=== PATIENT | female | born 1980 | race African-American/Black ===

== ENCOUNTER → 2018-04-03 | Outpatient (CLI) | payer BC ==
--- NOTE | 2018-04-03 20:28 | CT ---
EXAMINATION TYPE: CT facial bones wo con DATE OF EXAM: 04/03/2018 COMPARISON: None HISTORY: 37-year-old female with pain after facial injury, hit in the nose by a softball. TECHNIQUE: Contiguous high-resolution axial scanning through the facial bones without IV contrast. Co stormy reconstructions performed. CT DLP: 699.4 mGycm Automated exposure control for dose reduction was used. FINDINGS: There is a fracture along the left frontal process of the maxilla. This fracture is slightly angulate d and minimally depressed by 1 mm. There is concomitant minimal medial angulation at the maxillary and nasal bone junction causing inwar d bowing convexity along the left lateral aspect of the nose. Trace mucosal thickening within the right frontal sinus. Paranasal sinuses otherwise pneumatized. Vis ualized mastoid air cells and middle ear cavities are clear. Orbits and globes appear intact. Visualized intracranial structures show no gross abnormality. IMPRESSION: 1. SLIGHTLY ANGULATED AND MINIMALLY DEPRESSED (BY 1 MM) FRACTURE OF THE LEFT FRONTAL PROCESS OF THE M AXILLA. 2. CONCOMITANT MINIMAL MEDIAL ANGULATION AT THE MAXILLARY AND NASAL BONE JUNCTION WITH RESULTANT IN[address] RD BOWING CONVEXITY ALONG THE LEFT LATERAL ASPECT OF THE NOSE.
[2018-04-04 10:13] LABS: Cow's Milk IgE Class CLASS 0; Egg White IgE <0.35 kU/L (<0.35); Gluten IgE Class CLASS 0; Peanut IgE <0.35 kU/L (<0.35); Potato IgE <0.35 kU/L (<0.35); Potato IgE Class CLASS 0; Soybean IgE <0.35 kU/L (<0.35)
== END | disposition home or self-care (01) ==
LOC: RADCTMAIN 16:38
PROVIDERS: ATTEND Otolaryngology
DX: S02.40DA Maxillary fracture, left side, initial encounter for closed fracture (principal)
CPT/HCPCS: 36415; 70486; 86001; 86003

== ENCOUNTER → 2018-04-12 | Outpatient (CLI) | payer BC ==
[2018-04-12 15:23] LABS: Basophils % (A) 0 %; Eosinophils # (A) 0.2 k/uL (0-0.7); Eosinophils % (A) 2 %; HCT 37.6 % (34.0-46.0); HGB 12.7 gm/dL (11.4-16.0); Lymphocytes # (A) 1.9 k/uL (1.0-4.8); Lymphocytes % (A) 28 %; MCH 30.6 pg (25.0-35.0); MCHC 33.6 g/dL (31.0-37.0); MCV 90.9 fL (80.0-100.0); Mean Platelet Volume 7.6; Monocytes # (A) 0.4 k/uL (0-1.0); Monocytes % (A) 6 %; Neutrophils # (A) 4.1 k/uL (1.3-7.7); Neutrophils % (A) 61 %; Platelet Count 361 k/uL (150-450); RBC 4.14 m/uL (3.80-5.40); RDW 13.1 % (11.5-15.5); WBC 6.8 k/uL (3.8-10.6)
[2018-04-12 15:53] LABS: T4, Free (Free Thyroxine) 0.85 ng/dL (0.78-2.19)
[2018-04-13 01:12] LABS: Vitamin D 25 Hydroxy 19.4 ng/mL (30.0-100.0)
== END | disposition home or self-care (01) ==
LOC: LABWHC1 14:50
PROVIDERS: ATTEND Nurse Practitioner Family
DX: R53.83 Other fatigue (principal); R21 Rash and other nonspecific skin eruption
CPT/HCPCS: 36415; 82306; 82607; 84439; 84443; 85025; 86038

== ENCOUNTER 2019-06-28 12:58 | Emergency (ER) | payer BC ==
[2019-06-28 13:04] VITALS: RESP 16; TEMP 98
[2019-06-28] MEDS ORDERED: tiZANidine 4 MG TAB PO STA (13:28)
[2019-06-28 14:03] LABS: HCG,Qualitative Serum Not Detected
[2019-06-28 14:06] LABS: African American GFR (CKD) >90 (>60 ml/min/1.73 sqM); Anion Gap 7 mmol/L; Blood Urea Nitrogen 7 mg/dL (7-17); Calcium 9.4 mg/dL (8.4-10.2); Carbon Dioxide 27 mmol/L (22-30); Chloride 103 mmol/L (98-107); Glucose 202 mg/dL (74-99); Potassium 4.4 mmol/L (3.5-5.1); Sodium 137 mmol/L (137-145)
[2019-06-28] MEDS ORDERED: MORPHINE SULFATE 4 MG/ML SYRINGE IVP STA ×2 (14:12→15:25)
[2019-06-28 14:15] LABS: Basophils % (A) 0 %; Eosinophils # (A) 0.1 k/uL (0-0.7); Eosinophils % (A) 2 %; HCT 36.9 % (34.0-46.0); HGB 12.4 gm/dL (11.4-16.0); Lymphocytes # (A) 1.7 k/uL (1.0-4.8); Lymphocytes % (A) 20 %; MCH 30.6 pg (25.0-35.0); MCHC 33.5 g/dL (31.0-37.0); MCV 91.4 fL (80.0-100.0); Mean Platelet Volume 7.9; Monocytes # (A) 0.4 k/uL (0-1.0); Monocytes % (A) 5 %; Neutrophils # (A) 5.9 k/uL (1.3-7.7); Neutrophils % (A) 71 %; Platelet Count 341 k/uL (150-450); RBC 4.03 m/uL (3.80-5.40); RDW 12.9 % (11.5-15.5); WBC 8.2 k/uL (3.8-10.6)
--- NOTE | 2019-06-28 15:28 | CT ---
EXAMINATION TYPE: CT lumbar spine wo con, CT sacrum wo con DATE OF EXAM: 06/28/2019 COMPARISON: None HISTORY: 38-year-old female left hip pain TECHNIQUE: Contiguous axial scanning of the lumbar spine and sacrum without IV contrast. Coronal and sagittal reconstructions performed. CT DLP: 1276.2 mGycm Automated exposure control for dose reduction was used. FINDINGS: Lumbar spine: Vertebral body heights are preserved and alignment is maintained. Degenerative disc disease L5-S1 and also at L4-L5 with disc height loss and disc osteophyte complex f ormation at L5-S1. Large disc herniation at L4-L5. There is mild neuroforaminal narrowing on both sides at L4-L5 and L5-S1. At L4-L5, broad-based posterior disc bulge with superimposed central, right paracentral herniation ca using [id number]-[id number] spinal canal stenosis in probably abutting the traversing L5 nerve roots. At L5-S1, large left paracentral disc osteophyte complex moderately narrows the spinal canal and like ly impinges the traversing left S1 nerve root and possibly additional sacral nerve roots. Sacrum: SI joints appear symmetric and intact. No sacral fracture. The coccyx is not included. 4.4 cm left ovarian cyst almost certainly represents a benign functional cyst. A 6-8 week follow-up u ltrasound can reassess. COMBINED IMPRESSION: 1. Degenerative disc disease lower lumbar spine. A large left paracentral disc ossified complex moder ately narrows the spinal canal at L5-S1 and likely impinges the traversing left S1 and possibly addit ional traversing sacral nerve roots. 2. Additional broad-based disc bulge with superimposed central, right paracentral herniation at L4-L5 causes ytkf-lf-fucjttva spinal canal stenosis and may abut the traversing L5 nerve roots. 3. A 4.4 cm left ovarian cyst almost certainly represents a benign functional cyst. 6-8 week follow-u p ultrasound can ensure involution.
[2019-06-28] MEDS ORDERED: DEXAMETHASONE SOD PHOSPHATE 10 MG/ML 1 ML VIAL IV STA (16:26)
[2019-06-28] MEDS ORDERED: HYDROmorphone 1 MG/ML 1 ML SYRINGE IVP STA (16:48)
--- NOTE | 2019-06-28 16:48 | P.HPIM ---
History of Present Illness This is a combined H and P and discharge summary This is a pleasant 38 years old female with past medical history of hypertension, gestational diabetes, migraines, herniated disc, sacroiliac joint pain. Presents because of acute lower back pain. Patient states that she tried to turn to right side to drop off her 4 years old baby went she felt severe pain tearing like in her left lower back, the pain is radiating to the left lower extremity associated with worsening numbness in her feet and left hip area. Patient states that she has significant history of back pain and she saw Dr. Magdaleno the orthopedic about 10 years ago when she was 28 years old, however for about one year ago she started having significantly more low back pain when she was part of run club in 04/2018, she followed up with her PCP Dr. Crane who treated her conservatively,patient wanted to follow up with [facility] for about one year but she couldn't find appointment eventually patient was referred to Dr. Perez the neurologist who referred her for EMG was supposed to get it tomorrow and steroid injection at her back on 07/02/2019. Also patient had MRI of the back about 2-3 months ago was showing spinal stenosis secondary to herniated disc similar to the description below. Patient states usually she has some numbness in the lateral left 2 toes and the lateral side of the foot, however today her numbness is more extensive and more severe and involved the whole foot and the left lateral leg up to the thigh. Also usually sharp pain is in the left iliosacral joint area, however her pain is more severe today as 10/10 and it has extended to the left hip area down her leg. Patient refused her left leg to be examined her to move it due to severe pain Vitals his stable, labs include a CBC, BMP are unremarkable. Patient received several injections for pain however she still complaining fromthis severe pain so CT of the lumbar spine showed degenerative disc disease of the lower lumbar spine with large left paracentral disc complex causing narrowing of the spinal canal at L5 to S1, with right paracentral herniated disc at L4 to L5 causing [id number]-mn-[id number] spinal stenosis, also there is 4.4 cm left ovarian cyst thought it is benign with recommendation for follow-up in 6-8 weeks Review of systems CONSTITUTIONAL: No fever, no malaise, no fatigue. HEENT: No recent visual problems or hearing problems. Denied any sore throat. CARDIOVASCULAR: No orthopnea, PND, no palpitations, no syncope. PULMONARY: No shortness of breath, no cough, no hemoptysis. GASTROINTESTINAL: No diarrhea, no nausea, no vomiting, no abdominal pain. Normoactive bowel sounds. NEUROLOGICAL: No headaches, no blurred vision no difficulty swallowing HEMATOLOGICAL: Denies any bleeding or petechiae. GENITOURINARY: Denies any burning micturition, frequency, or urgency. -MUSCULOSKELETAL/RHEUMATOLOGICAL: Denies any joint pain, swelling, however patient complains from severe back pain as above ENDOCRINE: Denies any polyuria or polydipsia. Physical exam GENERAL: The patient is alert and oriented x3, not in any acute distress. Well developed, well nourished. HEENT: Pupils are round and equally reacting to light. EOMI. No scleral icterus. No conjunctival pallor. Normocephalic, atraumatic. No pharyngeal erythema. No thyromegaly. CARDIOVASCULAR: S1 and S2 present. No murmurs, rubs, or gallops. PULMONARY: Chest is clear to auscultation, no wheezing or crackles. ABDOMEN: Soft, nontender, nondistended, normoactive bowel sounds. No palpable organomegaly. MUSCULOSKELETAL: No joint swelling or deformity. EXTREMITIES: No cyanosis, clubbing, or pedal edema. -NEUROLOGICAL: Alert awake and oriented 3. Cranial nerves are grossly intact. Strength and sensation is intact in all 3 extremities except for the left lower extremity. Left lower extremity: Decreased sensation in the foot and in the leg and thigh mainly on the lateral side. Motor examination is limited as patient refused to examine her legs and movement due to severe pain. SKIN: No rashes. No petechiae Diagnoses Lumbar spinal stenosis a the left side of L5-S1, and right side at L4- L5, secondary to right herniated disc. Acute severe left back pain secondary to above, associated with worsening numbness in her left lower extremity involving the whole left foot with decreased sensation in the left leg and thigh. History of chronic back pain and spinal disease for more than one year. 4.4 cm left ovarian cyst, recommend follow-up with ultrasound in 6-8 weeks Hypertension Migraine History of gestational diabetes Plan This is a pleasant 58 years old female who presents with acute back pain with spinal stenosis secondary to disc herniation at L4 to 5 and L5 to S1. Continue with pain medication. Consult orthopedic service with Dr. Magdaleno , I discussed the case with Dr. Magdaleno including the computed tomography scan findings, unf ortunately he cannot see the patient today. And he agrees with the recommendation to transfer the patient to tertiary care facility. Patient started on dexamethasone. Discussed the case with the patient and she agreeable to be transferred Prognosis is guarded Discussed the case with the ER attending and staff Review of Systems CONSTITUTIONAL: No fever, no malaise, no fatigue. HEENT: No recent visual problems or hearing problems. Denied any sore throat. CARDIOVASCULAR: No orthopnea, PND, no palpitations, no syncope. PULMONARY: No shortness of breath, no cough, no hemoptysis. GASTROINTESTINAL: No diarrhea, no nausea, no vomiting, no abdominal pain. Normoa ctive bowel sounds. NEUROLOGICAL: No headaches, no weakness, no numbness. HEMATOLOGICAL: Denies any bleeding or petechiae. GENITOURINARY: Denies any burning micturition, frequency, or urgency. MUSCULOSKELETAL/RHEUMATOLOGICAL: Denies any joint pain, swelling, or any muscle pain. ENDOCRINE: Denies any polyuria or polydipsia. Past Medical History Past Medical History: Hypertension Additional Past Medical History / Comment(s): gestational diabetes, migraines, herniated disc, sacroilliac joint pain History of Any Multi-Drug Resistant Organisms: None Reported Past Surgical History: Section Past Psychological History: No Psychological Hx Reported Smoking Status: Never smoker Past Alcohol Use History: Occasional Past Drug Use History: None Reported Medications and Allergies Home Medications Medication Instructions Recorded Confirmed Type Gabapentin 600 mg PO TID 06/28/19 06/28/19 History metFORMIN HCL 1,000 mg PO BID 06/28/19 06/28/19 History tiZANidine HCL [Zanaflex] 8 mg PO HS 06/28/19 06/28/19 History traMADol HCL 50 mg PO BID 06/28/19 06/28/19 History Allergies Allergy/AdvReac Type Severity Reaction Status Date / Time venom-honey bee Allergy Severe Anaphylaxis Verified 06/28/19 13:22 [bee venom (honey bee)] sulfisoxazole acetyl AdvReac Severe Nausea & Verified 06/28/19 13:22 [From Pediazole] Vomiting & Diarrhea clindamycin AdvReac Nausea & Verified 06/28/19 13:22 Vomiting & Diarrhea erythromycin ethylsuccinate AdvReac Nausea & Verified 06/28/19 13:22 [From Pediazole] Vomiting & Diarrhea Physical Exam Vitals: Vital Signs Temp Pulse Resp BP Pulse Ox 06/28/19 13:00 98.0 F 73 16 140/99 99 Intake and Output 06/28/19 06/28/19 06/28/19 06:59 14:59 22:59 Other: Weight 90.718 kg GENERAL: The patient is alert and oriented x3, not in any acute distress. Well developed, well nourished. HEENT: Pupils are round and equally reacting to light. EOMI. No scleral icterus. No conjunctival pallor. Normocephalic, atraumatic. No pharyngeal erythema. No thyromegaly. CARDIOVASCULAR: S1 and S2 present. No murmurs, rubs, or gallops. PULMONARY: Chest is clear to auscultation, no wheezing or crackles. ABDOMEN: Soft, nontender, nondistended, normoactive bowel sounds. No palpable organomegaly. MUSCULOSKELETAL: No joint swelling or deformity. EXTREMITIES: No cyanosis, clubbing, or pedal edema. NEUROLOGICAL: Gross neurological examination did not reveal any focal deficits. SKIN: No rashes. No petechiae Results CBC & Chem 7: 06/28/19 13:45 06/28/19 13:45 Labs: Abnormal Lab Results - Last 24 Hours (Table) 06/28/19 Range/Units 13:45 Glucose 202 H (74-99) mg/dL
[2019-06-28] MEDS ORDERED: HYDROcodone/APAP 10-325MG 1 EACH TAB PO ONE (17:01)
--- NOTE | 2019-06-28 17:16 | ED ---
Back Pain HPI - General Chief Complaint: Back Pain/Injury Stated Complaint: lt hip pain Time Seen by Provider: 06/28/19 13:15 Source: EMS Limitations: physical limitation - History of Present Illness Initial Comments: 38 yoF presenting with her back pain. Patient states that she was picking up her 4-year-old child and she felt severe pain in her left back and down her left leg. She states that she has a history of left-sided lumbar and sacral disease which at baseline causes her to have some paresthesias of her left foot, but she now states that her entire left leg feels weak and numb. Denies any direct trauma to the back. Denies saddle anesthesia, bowel or bladder incontinence. - Related Data Home Medications Medication Instructions Recorded Confirmed Gabapentin 600 mg PO TID 06/28/19 06/28/19 metFORMIN HCL 1,000 mg PO BID 06/28/19 06/28/19 tiZANidine HCL [Zanaflex] 8 mg PO HS 06/28/19 06/28/19 traMADol HCL 50 mg PO BID 06/28/19 06/28/19 Allergies Allergy/AdvReac Type Severity Reaction Status Date / Time venom-honey bee Allergy Severe Anaphylaxis Verified 06/28/19 13:22 [bee venom (honey bee)] sulfisoxazole acetyl AdvReac Severe Nausea & Verified 06/28/19 13:22 [From Pediazole] Vomiting & Diarrhea clindamycin AdvReac Nausea & Verified 06/28/19 13:22 Vomiting & Diarrhea erythromycin ethylsuccinate AdvReac Nausea & Verified 06/28/19 13:22 [From Pediazole] Vomiting & Diarrhea Review of Systems ROS Statement: Those systems with pertinent positive or pertinent negative responses have been documented in the HPI. Review of Systems Constitutional: Denies fever, chills Eyes: Denies change in vision, Denies pain Ears, nose, mouth, throat: Denies headaches, Denies sore throat Cardiovascular: Denies chest pain. Denies palpitations Respiratory: Denies shortness of breath, Denies cough Gastrointestinal: Denies abdominal pain. Denies nausea, vomiting, diarrhea. Genitourinary: Denies hematuria, Denies infections Musculoskeletal: Denies swelling. Positive back pain Integumentary: Denies rash Neurological: Denies headache, Positive focal weakness, focal numbness Psychiatric: Denies anxiety, Denies depression Hematologic/Lymphatic: Denies easy bleeding or bruising ROS Other: All systems not noted in ROS Statement are negative. Past Medical History Past Medical History: Hypertension Additional Past Medical History / Comment(s): gestational diabetes, migraines, herniated disc, sacroilliac joint pain History of Any Multi-Drug Resistant Organisms: None Reported Past Surgical History: Section Past Psychological History: No Psychological Hx Reported Smoking Status: Never smoker Past Alcohol Use History: Occasional Past Drug Use History: None Reported General Exam - General Exam Comments Initial Comments: General: Awake, alert, No acute Distress HENT: Normocephalic. Atraumatic Eyes: PERRL. EOMI. No scleral icterus. No injected conjunctiva Neck: Full ROM Chest/Lungs: Clear to auscultation bilaterally. No wheezing, rhonchi, or rales Cardiac: Regular rate, rhythm. No murmurs or rubs Abdomen/GI: Soft, nontender, nondistended. No rebound, guarding, or rigidity. Musculoskeletal: Full ROM. Tenderness to L5 and left sacro-iliac joint. Skin: Warm, dry, intact : Rectal tone intact. Neurologic: A/Ox3. Decreased sensation to L3-S1 dermatomes on left. Patient refusing to move left leg secondary to pain (unable to test strength) but patient can move leg. Limitations: physical limitation Course Vital Signs 06/28/19 13:00 Temperature 98.0 F Pulse Rate 73 Respiratory 16 Rate Blood Pressure 140/99 O2 Sat by Pulse 99 Oximetry Medical Decision Making - Medical Decision Making 88-year-old female presenting with severe lumbar back pain. Initial exam the patient is awake alert she is uncomfortable appearing. She does have a sensory deficit in the left Thelma Rosa Isela. Her CT showed degenerative disease in her lower lumbar spine with a large left paracentral disc ossified complex moderately narrows the spinal canal at L5 through S1 and likely impinges a transverse and left S1 and possibly additional transversing sacral nerve roots. Patient also has additional broad-based disc bulges superimposed central, right paracentral herniation at L4 through L5 causing mild to moderate spinal canal stenosis. Patient was evaluated by Dr. Dalton who spoke with Dr. Magdaleno who re commends transfer. Patient requesting [facility]. I spoke with Dr. Valencia who accepts admission. - Lab Data Result diagrams: 06/28/19 13:45 06/28/19 13:45 Lab Results 06/28/19 06/28/19 Range/Units 13:45 13:45 WBC 8.2 (3.8-10.6) k/uL RBC 4.03 (3.80-5.40) m/uL Hgb 12.4 (11.4-16.0) gm/dL Hct 36.9 (34.0-46.0) % MCV 91.4 (80.0-100.0) fL MCH 30.6 (25.0-35.0) pg MCHC 33.5 (31.0-37.0) g/dL RDW 12.9 (11.5-15.5) % Plt Count 341 (150-450) k/uL Neutrophils % 71 % Lymphocytes % 20 % Monocytes % 5 % Eosinophils % 2 % Basophils % 0 % Neutrophils # 5.9 (1.3-7.7) k/uL Lymphocytes # 1.7 (1.0-4.8) k/uL Monocytes # 0.4 (0-1.0) k/uL Eosinophils # 0.1 (0-0.7) k/uL Basophils # 0.0 (0-0.2) k/uL Sodium 137 (137-145) mmol/L Potassium 4.4 (3.5-5.1) mmol/L Chloride 103 (98-107) mmol/L Carbon Dioxide 27 (22-30) mmol/L Anion Gap 7 mmol/L BUN 7 (7-17) mg/dL Creatinine 0.52 (0.52-1.04) mg/dL Est GFR (CKD-EPI)AfAm >90 (>60 ml/min/1.73 sqM) Est GFR (CKD-EPI)NonAf >90 (>60 ml/min/1.73 sqM) Glucose 202 H (74-99) mg/dL Calcium 9.4 (8.4-10.2) mg/dL HCG, Qual Not Detected Disposition Clinical Impression: Left leg numbness, Back pain Disposition: OTHER INSTITUTION NOT DEFINED Is patient prescribed a controlled substance at d/c from ED?: No Referrals: Gabi Judge MD [Primary Care Provider] - 1-2 days - Out of Hospital Transfer - Req. Specs Out of Hospital Transfer - Requested Specifics: Other Emergency Center ([facility]
[2019-06-28 18:29] VITALS: BP 136/76; PULSE 70
[2019-06-29] MEDS ORDERED: DEXAMETHASONE SOD PHOSPHATE 4 MG/ML 1 ML VIAL IV SCH
== END 2019-06-28 18:36 | disposition other institution (70) ==
LOC: EC 12:58
DX: M48.07 Spinal stenosis, lumbosacral region (principal); M51.26 Other intervertebral disc displacement, lumbar region; M47.816 Spondylosis without myelopathy or radiculopathy, lumbar region; E11.69 Type 2 diabetes mellitus with other specified complication; Z79.84 Long term (current) use of oral hypoglycemic drugs; Z79.891 Long term (current) use of opiate analgesic; Z79.899 Other long term (current) drug therapy; Z88.1 Allergy status to other antibiotic agents; Z91.030 Bee allergy status; Z88.2 Allergy status to sulfonamides
CPT/HCPCS: 36415; 80048; 85025; 84703; 72131; 72192; 99285; 96374; 96375 ×2; 96376; J2270; J1100; J1170

== ENCOUNTER 2020-10-25 11:39 | Emergency (ER) | payer BC ==
[2020-10-25 11:45] VITALS: BP 148/92; PULSE 91; RESP 18; TEMP 97.8
--- NOTE | 2020-10-25 11:58 | ED ---
Extremity Problem HPI - General Chief complaint: Extremity Problem,Nontraumatic Stated complaint: L leg pain/swelling Time Seen by Provider: 10/25/20 11:47 Source: patient, RN notes reviewed Mode of arrival: ambulatory Limitations: no limitations - History of Present Illness Initial comments: This is a 32-year-old female presents emergency Department with chief complaint of left calf pain. Patient states started yesterday. Patient states that she has been dealing with some back issues and went for recheck with her PCP. Patient states that she was sent to rule out a blood clot. Patient denies any trauma no redness or swelling of the calf. Patient has no pain is rating down her leg denies any bowel bladder incontinence or retention denies any difficulty ambulate in. - Related Data Home Medications Medication Instructions Recorded Confirmed Gabapentin 600 mg PO TID 06/28/19 06/28/19 metFORMIN HCL 1,000 mg PO BID 06/28/19 06/28/19 tiZANidine HCL [Zanaflex] 8 mg PO HS 06/28/19 06/28/19 traMADol HCL 50 mg PO BID 06/28/19 06/28/19 Allergies Allergy/AdvReac Type Severity Reaction Status Date / Time venom-honey bee Allergy Severe Anaphylaxis Verified 10/25/20 11:46 [bee venom (honey bee)] sulfisoxazole acetyl AdvReac Severe Nausea & Verified 10/25/20 11:46 [From Pediazole] Vomiting & Diarrhea clindamycin AdvReac Nausea & Verified 10/25/20 11:46 Vomiting & Diarrhea corn AdvReac Rash/Hives Verified 10/25/20 11:46 egg AdvReac Rash/Hives Verified 10/25/20 11:46 erythromycin ethylsuccinate AdvReac Nausea & Verified 10/25/20 11:46 [From Pediazole] Vomiting & Diarrhea Milk Containing Products AdvReac Rash/Hives Verified 10/25/20 11:46 [Dairy] wheat AdvReac Rash/Hives Verified 10/25/20 11:46 Review of Systems ROS Statement: Those systems with pertinent positive or pertinent negative responses have been documented in the HPI. ROS Other: All systems not noted in ROS Statement are negative. Past Medical History Past Medical History: Hypertension Additional Past Medical History / Comment(s): gestational diabetes, migraines, herniated disc, sacroilliac joint pain History of Any Multi-Drug Resistant Organisms: None Reported Past Surgical History: Back Surgery, Section Additional Past Surgical History / Comment(s): nasel sx Past Psychological History: No Psychological Hx Reported Smoking Status: Former smoker Past Alcohol Use History: Occasional Past Drug Use History: None Reported General Exam Limitations: no limitations General appearance: alert, in no apparent distress Head exam: Present: atraumatic, normocephalic, normal inspection Eye exam: Present: normal appearance, PERRL, EOMI. Absent: scleral icterus, conjunctival injection, periorbital swelling ENT exam: Present: normal exam, mucous membranes moist Neck exam: Present: normal inspection, full ROM. Absent: tenderness, meningismus, lymphadenopathy Respiratory exam: Present: normal lung sounds bilaterally. Absent: respiratory distress, wheezes, rales, rhonchi, stridor Cardiovascular Exam: Present: regular rate, normal rhythm, normal heart sounds. Absent: systolic murmur, diastolic murmur, rubs, gallop, clicks Extremities exam: Present: other (Left calf there is localized tenderness, pedal pulses equal bilaterally there is no redness or any swelling noted of the leg strength is equal bilaterally of the lower shunted 5/5) Neurological exam: Present: alert, oriented X3, reflexes normal. Absent: motor sensory deficit Skin exam: Present: warm, dry, intact, normal color. Absent: rash Course Vital Signs 10/25/20 11:43 Temperature 97.8 F Pulse Rate 91 Respiratory 18 Rate Blood Pressure 148/92 O2 Sat by Pulse 98 Oximetry Medical Decision Making - Medical Decision Making Ultrasound is negative for acute DVT. Patient is neurovascular intact. Patient may have left calf strain. Patient we discharged in stable condition. Disposition Clinical Impression: Pain of left calf Disposition: HOME SELF-CARE Condition: Stable Instructions (If sedation given, give patient instructions): Leg Pain (ED) Additional Instructions: Please return to the Emergency Department if symptoms worsen or any other concerns. Is patient prescribed a controlled substance at d/c from ED?: No Referrals: Gabi Judge MD [Primary Care Provider] - 1-2 days Time of Disposition: 12:45
--- NOTE | 2020-10-25 12:33 | US ---
EXAMINATION TYPE: US venous doppler duplex LE LT DATE OF EXAM: 10/25/2020 12:25 PM COMPARISON: NONE CLINICAL HISTORY: pain. Left calf pain. No injury. No redness. No swelling. Not on blood thinners . SIDE PERFORMED: Left TECHNIQUE: The lower extremity deep venous system is examined utilizing real time linear array sonog tamy with graded compression, doppler sonography and color-flow sonography. VESSELS IMAGED: Common Femoral Vein Deep Femoral Vein Greater Saphenous Vein * Femoral Vein Popliteal Vein Small Saphenous Vein * Proximal Calf Veins (* superficial vessels) Left Leg: Negative for DVT IMPRESSION: No evidence for DVT
== END 2020-10-25 12:57 | disposition home or self-care (01) ==
LOC: EC 11:39
DX: M79.662 Pain in left lower leg (principal); Z79.1 Long term (current) use of non-steroidal anti-inflammatories (NSAID); Z88.1 Allergy status to other antibiotic agents; Z88.2 Allergy status to sulfonamides; Z91.030 Bee allergy status; Z91.011 Allergy to milk products; Z91.018 Allergy to other foods; Z87.891 Personal history of nicotine dependence; Z91.012 Allergy to eggs; Z86.69 Personal history of other diseases of the nervous system and sense organs
CPT/HCPCS: 99283

== ENCOUNTER 2022-07-28 05:14 | Observation (INO) | payer BC ==
--- NOTE | 2022-07-28 05:28 | ED ---
Chest Pain HPI - General Source: EMS, RN notes reviewed, old records reviewed Mode of arrival: EMS Limitations: no limitations - History of Present Illness MD Complaint: chest pain -: hour(s) Onset: during rest, during exertion Pain Location: substernal, left chest Pain Radiation: none Severity: moderate Severity scale (1-10): 7 Quality: tightness, heaviness Consistency: constant Improves With: nothing Worsens With: nothing Other Symptoms: palpitations Treatments Prior to Arrival: none <Wyatt Alejandra - Last Filed: 07/28/22 06:14> <Tavo Alanis - Last Filed: 07/28/22 07:28> - General Chief Complaint: Chest Pain Stated Complaint: Chest Pain Time Seen by Provider: 07/28/22 05:16 - Related Data Home Medications Medication Instructions Recorded Confirmed Gabapentin 600 mg PO TID 06/28/19 06/28/19 metFORMIN HCL [Glucophage] 1,000 mg PO BID 06/28/19 06/28/19 tiZANidine HCL [Zanaflex] 8 mg PO HS 06/28/19 06/28/19 traMADol HCL 50 mg PO BID 06/28/19 06/28/19 Allergies Allergy/AdvReac Type Severity Reaction Status Date / Time venom-honey bee Allergy Severe Anaphylaxis Verified 07/28/22 05:22 [bee venom (honey bee)] sulfisoxazole acetyl AdvReac Severe Nausea & Verified 07/28/22 05:22 [From Pediazole] Vomiting & Diarrhea clindamycin AdvReac Nausea & Verified 07/28/22 05:22 Vomiting & Diarrhea corn AdvReac Rash/Hives Verified 07/28/22 05:22 egg AdvReac Rash/Hives Verified 07/28/22 05:22 erythromycin ethylsuccinate AdvReac Nausea & Verified 07/28/22 05:22 [From Pediazole] Vomiting & Diarrhea Milk Containing Products AdvReac Rash/Hives Verified 07/28/22 05:22 [Dairy] wheat AdvReac Rash/Hives Verified 07/28/22 05:22 Review of Systems ROS Other: All systems not noted in ROS Statement are negative. <Wyatt Alejandra - Last Filed: 07/28/22 06:14> ROS Other: All systems not noted in ROS Statement are negative. <Tavo Alanis - Last Filed: 07/28/22 07:28> ROS Statement: Those systems with pertinent positive or pertinent negative responses have been documented in the HPI. EKG Findings - EKG Comments: EKG Findings:: EKG is sinus 80 MT 186 QRS 86 QTc 402 <Wyatt Alejandra - Last Filed: 07/28/22 06:14> Past Medical History Past Medical History: Hypertension Additional Past Medical History / Comment(s): gestational diabetes, migraines, herniated disc, sacroilliac joint pain History of Any Multi-Drug Resistant Organisms: None Reported Past Surgical History: Back Surgery, Section Additional Past Surgical History / Comment(s): nasel sx Past Psychological History: No Psychological Hx Reported Smoking Status: Former smoker Past Alcohol Use History: Occasional Past Drug Use History: None Reported <Wyatt Alejandra - Last Filed: 07/28/22 06:14> General Exam Limitations: no limitations General appearance: alert, in no apparent distress Head exam: Present: atraumatic, normocephalic, normal inspection Eye exam: Present: normal appearance, PERRL, EOMI. Absent: scleral icterus, conjunctival injection, periorbital swelling ENT exam: Present: normal exam, mucous membranes moist Neck exam: Present: normal inspection. Absent: tenderness, meningismus, lymphadenopathy Respiratory exam: Present: normal lung sounds bilaterally. Absent: respiratory distress, wheezes, rales, rhonchi, stridor Cardiovascular Exam: Present: regular rate, normal rhythm, normal heart sounds. Absent: systolic murmur, diastolic murmur, rubs, gallop, clicks GI/Abdominal exam: Present: soft, normal bowel sounds. Absent: distended, tenderness, guarding, rebound, rigid Extremities exam: Present: normal inspection, full ROM, normal capillary refill. Absent: tenderness, pedal edema, joint swelling, calf tenderness Back exam: Present: normal inspection Neurological exam: Present: alert, oriented X3, CN II-XII intact Psychiatric exam: Present: normal affect, normal mood Skin exam: Present: warm, dry, intact, normal color. Absent: rash <Wyatt Alejandra - Last Filed: 07/28/22 06:14> Course <Tavo Alanis - Last Filed: 07/28/22 07:28> Vital Signs 07/28/22 05:22 Temperature 98.7 F Pulse Rate 84 Respiratory 15 Rate Blood Pressure 139/98 O2 Sat by Pulse 100 Oximetry - Reevaluation(s) Reevaluation #1: 07/28/22 07:28 Dr. Colbert did call back to discuss admission. (Tavo Alanis) Chest Pain MDM <Wyatt Alejandra - Last Filed: 07/28/22 06:14> - MDM 41 female to the emergency room for evaluation patient presents today for evaluation regards to chest pain and heaviness. History of diabetes high blood pressure strong family history of heart disease, patient be admitted for cardiac observation (Wyatt Alejandra) Disposition Is patient prescribed a controlled substance at d/c from ED?: No Time of Disposition: 06:20 <Wyatt Alejandra - Last Filed: 07/28/22 06:14> <Tavo Alanis - Last Filed: 07/28/22 07:28> Clinical Impression: Chest pain Disposition: ADMITTED IP TO THIS HOSP Condition: Undetermined
[2022-07-28] MEDS ORDERED: SODIUM CHLORIDE 0.9% 1,000 ML IV STA (05:29)
[2022-07-28 05:56] LABS: Basophils # (A) 0.1 k/uL (0-0.2); Basophils % (A) 1 %; Eosinophils # (A) 0.2 k/uL (0-0.7); Eosinophils % (A) 2 %; HGB 10.2 gm/dL (11.4-16.0); Hypochromasia Slight; Lymphocytes # (A) 1.7 k/uL (1.0-4.8); Lymphocytes % (A) 19 %; MCH 30.9 pg (25.0-35.0); MCV 90.9 fL (80.0-100.0); Mean Platelet Volume 8.9; Monocytes # (A) 0.5 k/uL (0-1.0); Monocytes % (A) 6 %; Neutrophils # (A) 6.1 k/uL (1.3-7.7); Neutrophils % (A) 70 %; Platelet Count 395 k/uL (150-450); RDW 13.4 % (11.5-15.5); WBC 8.7 k/uL (3.8-10.6)
[2022-07-28 06:09] LABS: ALT 21 U/L (4-34); AST 23 U/L (14-36); African American GFR (CKD) >90 (>60 ml/min/1.73 sqM); Albumin 4.6 g/dL (3.5-5.0); Alkaline Phosphatase 110 U/L (38-126); Anion Gap 10 mmol/L; Blood Urea Nitrogen 8 mg/dL (7-17); Carbon Dioxide 22 mmol/L (22-30); Chloride 105 mmol/L (98-107); Glucose 253 mg/dL (74-99); Lipase 180 U/L (23-300); Magnesium 1.8 mg/dL (1.6-2.3); Non-African American GFR(CKD) >90 (>60 ml/min/1.73 sqM); Potassium 4.3 mmol/L (3.5-5.1); Sodium 137 mmol/L (137-145); Total Bilirubin 0.5 mg/dL (0.2-1.3); Total Protein 8.2 g/dL (6.3-8.2)
--- NOTE | 2022-07-28 06:12 | XR ---
EXAMINATION TYPE: XR chest 1V portable DATE OF EXAM: 07/28/2022 COMPARISON: NONE HISTORY: Chest pain. TECHNIQUE: Single AP portable frontal upright view of the chest is obtained. FINDINGS: There is no focal air space opacity, pleural effusion, or pneumothorax seen. The cardiac silhouette size is within normal limits. The osseous structures are intact. IMPRESSION: No acute process.
[2022-07-28] MEDS ORDERED: NITROGLYCERIN SL TABS 0.4 MG TAB SUBLINGUAL PRN (06:13)
[2022-07-28] MEDS ORDERED: ASPIRIN 81 MG PO STA (06:13)
[2022-07-28 06:33] LABS: INR 0.9 (<1.2); Prothrombin Time 9.9 sec (9.0-12.0)
[2022-07-28 06:36] LABS: Partial Thromboplastin Time 21.2 sec (22.0-30.0)
--- NOTE | 2022-07-28 09:48 | US ---
EXAMINATION TYPE: US venous doppler duplex LE BI DATE OF EXAM: 07/28/2022 9:28 AM COMPARISON: Left lower extremity venous ultrasound October 25, 2020 CLINICAL HISTORY: r/o DVT. edema SIDE PERFORMED: Bilateral TECHNIQUE: The lower extremity deep venous system is examined utilizing real time linear array sonog tamy with graded compression, doppler sonography and color-flow sonography. VESSELS IMAGED: Common Femoral Vein Deep Femoral Vein Greater Saphenous Vein * Femoral Vein Popliteal Vein Small Saphenous Vein * Proximal Calf Veins (* superficial vessels) Right Leg: Negative for DVT Left Leg: Thrombus visualized in the Greater Saphenous Vein from the groin to the knee. Grayscale, color doppler, spectral doppler imaging performed of the deep veins of the bilateral lower extremities. There is normal flow, compressibility, vascular waveforms. IMPRESSION: Long segment acute superficial venous thrombosis in the left greater saphenous vein exte nds to level of the groin. A Yellow level critical message alert has been initiated for García Mir MD via the [employer] Critical Results System on 07/28/2022 9:45 AM. This message alert has been sent to García Mir MD via the preferences provided by the clinician for the receipt of Radiology Critical Findings. Message ID [id number].
--- NOTE | 2022-07-28 10:29 | CT ---
EXAMINATION TYPE: CT angio chest DATE OF EXAM: 07/28/2022 10:14 AM COMPARISON: None HISTORY: Elevated d-dimer and chest pain. CT DLP: 301.3 mGycm Automated exposure control for dose reduction was used. CONTRAST: CTA scan of the thorax is performed with IV Contrast, patient injected with 70ml mL of Isovue 370, pu lmonary embolism protocol. . FINDINGS: LUNGS: The lungs are grossly clear, there is no concerning parenchymal mass or nodule identified. T here is no pleural effusion or pneumothorax seen. The tracheobronchial tree is patent. Small bleb is seen in the right lower lobe axial image 93. Subpleural nodularity involving the lung bases measurin g 5 mm or less likely MEDIASTINUM: There is satisfactory enhancement of the pulmonary artery and its branches, there is no CT evidence for pulmonary embolism. There are multiple pathologic sized lymph nodes are subcarinal a denopathy measures are intact centimeters. Right hilar adenopathy measuring short axis of 2.6 cm. Sulaiman ateral hilar and mediastinal adenopathy are noted or pathologic. Heart size normal. No coronary arter y calcium lesion or pericardial effusion. Aorta normal caliber. OTHER: Hypertrophic and degenerative changes of the spine. IMPRESSION: 1. No diagnostic evidence of pulmonary embolus. 2. There is marked mediastinal and bilateral hilar lymphadenopathy correlate for history of malignanc y including lymphoma.
[2022-07-28] MEDS: SODIUM CHLORIDE 0.9% 1,000 ML IV SCH (11:17)
--- NOTE | 2022-07-28 11:29 | P.CRDCN ---
History of Present Illness Consult date: 07/28/22 History of present illness: HISTORY OF PRESENT ILLNESS: This is a 41-year-old female with a past medical history significant for hypertension, diabetes, and former nicotine dependence. 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 We have been asked to see the patient in consultation for chest pain. Patient examined at the bedside. Patient states she was having some nausea and dry heaving. She reports shortly after she began having pain in the middle of her chest. EMS was called. She received aspirin and nitro x 2. She did report some relief at the second nitro. The patient currently denies chest pain or SOB. She does report some redness and tenderness to her left leg. She states this began after she was traveling home from a 4 hour flight. She states that her dad of a pulmonary embolism at age 44. She reports her mom has a his tory of hypertension. The patient states that she is prescribed lisinopril on an outpatient basis but she does not always take it. She denies any previous history of coronary artery disease. * EKG reveals sinus mechanism with no signs of acute ischemia * Chest xray negative for acute process * Venous Doppler: Long segment acute superficial venous thrombosis in the left greater saphenous vein extending to level of groin * Chest CT: Negative for PE. There is marked mediastinal and bilateral hilar lymphadenopathy correlate for history of malignancy including lymphoma. No coronary artery calcium lesion or pericardial effusion noted. Aorta of normal caliber. * Laboratory data: WBC 8.7. Hemoglobin 10.2. Platelet count 395. D-dimer 4.26. Sodium 137. Potassium 4.3. BUN 8. Creatinine 0.56. Troponin negative 2. ProBNP 39. * Current home cardiac medications include lisinopril 5 mg daily REVIEW OF SYSTEMS: At the time of my exam: CONSTITUTIONAL: Denies fever or chills. HEENT: Denies blurred vision, vision changes, or eye pain. Denies hemoptysis CARDIOVASCULAR: Denies chest pain. Denies orthopnea. Denies PND. Denies palpitations RESPIRATORY: Denies shortness of breath. GASTROINTESTINAL: Denies abdominal pain. Denies nausea or vomiting. HEMATOLOGIC: Denies bleeding disorders. GENITOURINARY: Denies any blood in urine. SKIN: Denies pruitis. Denies rash. PHYSICAL EXAM: VITAL SIGNS: Reviewed. GENERAL: Well-developed in no acute distress. HEENT: Head is normocephalic. Pupils are equal, round. Sclerae anicteric. Mucous membranes of the mouth are moist. Neck supple. No JVD or thyromegaly LUNGS: Respirations even and unlabored. Lungs essentially clear to auscultation bilaterally. HEART: Regular rate and rhythm. S1 and S2 heard. ABDOMEN: Soft. Nondistended. Nontender. EXTREMITIES: Normal range of motion. No clubbing or cyanosis. Peripheral pulses intact. Erythema noted to left lower leg NEUROLOGIC: Awake and alert. Oriented x 3. ASSESSMENT: Chest pain, troponin negative x 2, ACS ruled out Hypertension, not complaint with lisinopril outpatient Left lower extremity superficial venous thrombosis Mediastinal and bilateral hilar lymphadenopathy, rule out malignancy Diabetes Former nicotine dependence PLAN: An acute coronary event has been ruled out Obtain 2D echo to assess cardiac structure and function Resume lisinopril. Add aspirin 81mg daily Check lipid panel Recommend further evaluation of abnormal CT scan. Will defer to internal medicine. Further recommendations pending patient course Nurse practitioner note has been reviewed by physician. Signing provider agrees with the documented findings, assessment, and plan of care. Past Medical History Past Medical History: Hypertension Additional Past Medical History / Comment(s): gestational diabetes, migraines, herniated disc, sacroilliac joint pain History of Any Multi-Drug Resistant Organisms: None Reported Past Surgical History: Back Surgery, Section Additional Past Surgical History / Comment(s): nasel sx Past Psychological History: No Psychological Hx Reported Smoking Status: Former smoker Past Alcohol Use History: Occasional Past Drug Use History: None Reported Medications and Allergies Home Medications Medication Instructions Recorded Confirmed Type Gabapentin 600 mg PO TID 06/28/19 06/28/19 History metFORMIN HCL [Glucophage] 1,000 mg PO BID 06/28/19 06/28/19 History tiZANidine HCL [Zanaflex] 8 mg PO HS 06/28/19 06/28/19 History traMADol HCL 50 mg PO BID 06/28/19 06/28/19 History Allergies Allergy/AdvReac Type Severity Reaction Status Date / Time venom-honey bee Allergy Severe Anaphylaxis Verified 07/28/22 05:22 [bee venom (honey bee)] sulfisoxazole acetyl AdvReac Severe Nausea & Verified 07/28/22 05:22 [From Pediazole] Vomiting & Diarrhea clindamycin AdvReac Nausea & Verified 07/28/22 05:22 Vomiting & Diarrhea corn AdvReac Rash/Hives Verified 07/28/22 05:22 egg AdvReac Rash/Hives Verified 07/28/22 05:22 erythromycin ethylsuccinate AdvReac Nausea & Verified 07/28/22 05:22 [From Pediazole] Vomiting & Diarrhea Milk Containing Products AdvReac Rash/Hives Verified 07/28/22 05:22 [Dairy] wheat AdvReac Rash/Hives Verified 07/28/22 05:22 Physical Exam Vitals: Vital Signs Temp Pulse Resp BP Pulse Ox 07/28/22 08:05 79 16 137/80 100 07/28/22 05:22 98.7 F 84 15 139/98 100 Intake and Output 07/27/22 07/28/22 07/28/22 22:59 06:59 14:59 Other: Weight 90.718 kg Results 07/28/22 05:19 07/28/22 05:19 Cardiac Enzymes 07/28/22 07/28/22 Range/Units 05:19 05:19 AST 23 (14-36) U/L Troponin I <0.012 (0.000-0.034) ng/mL Coagulation 07/28/22 Range/Units 05:19 PT 9.9 (9.0-12.0) sec APTT 21.2 L (22.0-30.0) sec CBC 07/28/22 Range/Units 05:19 WBC 8.7 (3.8-10.6) k/uL RBC 3.30 L (3.80-5.40) m/uL Hgb 10.2 L (11.4-16.0) gm/dL Hct 30.0 L (34.0-46.0) % Plt Count 395 (150-450) k/uL Comprehensive Metabolic Panel 07/28/22 Range/Units 05:19 Sodium 137 (137-145) mmol/L Potassium 4.3 (3.5-5.1) mmol/L Chloride 105 (98-107) mmol/L Carbon Dioxide 22 (22-30) mmol/L BUN 8 (7-17) mg/dL Creatinine 0.56 (0.52-1.04) mg/dL Glucose 253 H (74-99) mg/dL Calcium 9.0 (8.4-10.2) mg/dL AST 23 (14-36) U/L ALT 21 (4-34) U/L Alkaline Phosphatase 110 (38-126) U/L Total Protein 8.2 (6.3-8.2) g/dL Albumin 4.6 (3.5-5.0) g/dL Current Medications Generic Name Dose Route Start Last Admin Trade Name Freq PRN Reason Stop Dose Admin Aspirin 325 mg 07/29/22 09:00 Aspirin 325 Mg Tab PO DAILY JD Sodium Chloride 1,000 mls @ 100 mls/hr 07/28/22 05:29 07/28/22 05:38 Saline 0.9% IV 07/28/22 15:28 100 mls/hr .Q10H STA Administration Sodium Chloride 1,000 mls @ 20 mls/hr 07/28/22 06:15 Saline 0.9% IV .Q24H JD Nitroglycerin 0.4 mg 07/28/22 06:13 Nitroglycerin Sl Tabs 0.4 Mg Tab SUBLINGUAL Q5M PRN Chest Pain Intake and Output 07/27/22 07/28/22 07/28/22 22:59 06:59 14:59 Other: Weight 90.718 kg 07/28/22 05:19 07/28/22 05:19
[2022-07-28] MEDS ORDERED: METOCLOPRAMIDE 10 MG TAB PO PRN (11:58)
[2022-07-28] MEDS ORDERED: DEXTROSE 50% SYRINGE 50 ML IVP PRN ×2 (12:12)
--- NOTE | 2022-07-28 12:15 | P.HPIM ---
History of Present Illness H&P Date: 07/28/22 Chief Complaint: chest pain Patient is a 41-year-old female with history of menorrhagia, hypertension, diabetes, and diabetic gastroparesis presenting with chest pain. She claims that her chest pain started this morning around 5, sudden onset, epigastric/skelton bsternal, tightening in nature, 9/10, and nonradiating. She also felt nauseous with the chest pain, most of her chest pain has not resolved. She denied any shortness of breath, abdominal pain, recent illness, cough, or sick contacts. Patient has a history of menorrhagia, and was started on tranexamic acid and estrogen based contraceptives. She traveled to [place] last weekend, and noticed that after returning should had left inner thigh redness and pain. In the ED, vital signs were within normal limits. Lab work showed normocytic anemia, elevated d-dimer. Troponin 3 were negative. Lower extremity venous Doppler showed acute superficial venous thrombosis in the left greater saphenous vein extending to the level of groin. CTA chest showed no evidence of pulmonary embolism. However, marked mediastinal and bilateral hilar lymphadenopathy was noted. Cardiology consulted. Echo pending. Patient seen and examined at bedside. Pertinent positives and negatives as discussed in HPI, a complete review of systems was performed and all other systems are negative. Vital signs reviewed General: nontoxic, no distress, appears at stated age Derm: warm, dry Head: atraumatic, normocephalic, symmetric Eyes: EOMI, no lid lag, anicteric sclera, pupils equal round reactive to light ENT: Nose and ears atraumatic Neck: No thyromegaly Mouth: no lip lesion, mucus membranes moist Cardiovascular: S1S2 reg, no murmur, no edema, chest slight tenderness to palpation at the sternum Lungs: clear to auscultation bilateral, no rhonchi, no rales, no wheeze, no accessory muscle use Abdominal: soft, nontender to palpation, no guarding, no appreciable organomegaly Ext: no gross muscle atrophy, muscle strength muscle strength 5 out of 5 in all 4 extremities, no contractures Neuro: CN II-XII grossly intact Psych: Alert, oriented, appropriate affect Assessment/Plan: Acute chest pain -Less likely ACS, negative troponin -CTA chest negative for PE -Cardiology consulted -Echo pending -Telemetry Elevated d-dimer Acute left greater saphenous superficial venous thrombosis -Likely in the setting of tranexamic acid and estrogen based contraceptive use -Warm compress -CTA chest negative for PE Mediastinal and hilar lymphadenopathy -Noted on CTA chest -Concern for possible lymphoma -Oncology consult Hypertension -lisinopril DM gastroparesis -SSI, reglan Menorrhagia -hold contraceptives and tranexamic acid The patient is admitted with an anticipated less than 2 midnight stay for evaluation of chest pain. Surrogate decision-maker: CODE STATUS:full code DVT prophylaxis: heparin sq Anticipated discharge date: 07/[address]: Home A total of 48minutes was spent on the care of this complex patient more than 50% of the time was spent in counseling and care coordination. Past Medical History Past Medical History: Hypertension Additional Past Medical History / Comment(s): gestational diabetes, migraines, herniated disc, sacroilliac joint pain History of Any Multi-Drug Resistant Organisms: None Reported Past Surgical History: Back Surgery, Section Additional Past Surgical History / Comment(s): nasel sx Past Anesthesia/Blood Transfusion Reactions: No Reported Reaction Past Psychological History: No Psychological Hx Reported Smoking Status: Former smoker Past Alcohol Use History: Occasional Past Drug Use History: None Reported - Past Family History Father Family Medical History: Pulmonary Embolus Medications and Allergies Home Medications Medication Instructions Recorded Confirmed Type Dulaglutide [Trulicity] 3 mg SQ SKELTON 07/28/22 07/28/22 History Ferrous Gluconate 324 mg PO DAILY 07/28/22 07/28/22 History Metoclopramide HCl [Reglan] 10 mg PO TID PRN 07/28/22 07/28/22 History norethindrone ac-eth estradioL 1 tab PO DAILY 07/28/22 07/28/22 History [Gerardo 21 1-20 Tablet] Allergies Allergy/AdvReac Type Severity Reaction Status Date / Time venom-honey bee Allergy Severe Anaphylaxis Verified 07/28/22 11:35 [bee venom (honey bee)] sulfisoxazole acetyl AdvReac Severe Nausea & Verified 07/28/22 11:35 [From Pediazole] Vomiting & Diarrhea clindamycin AdvReac Nausea & Verified 07/28/22 11:35 Vomiting & Diarrhea corn AdvReac Rash/Hives Verified 07/28/22 11:35 egg AdvReac Rash/Hives Verified 07/28/22 11:35 erythromycin ethylsuccinate AdvReac Nausea & Verified 07/28/22 11:35 [From Pediazole] Vomiting & Diarrhea Milk Containing Products AdvReac Rash/Hives Verified 07/28/22 11:35 [Dairy] wheat AdvReac Rash/Hives Verified 07/28/22 11:35 Physical Exam Vitals: Vital Signs Temp Pulse Pulse Resp BP BP Pulse Ox 07/28/22 08:05 79 16 137/80 100 07/28/22 08:00 98 F 89 18 114/75 100 07/28/22 05:22 98.7 F 84 15 139/98 100 Intake and Output 07/27/22 07/28/22 07/28/22 22:59 06:59 14:59 Other: Weight 90.718 kg 90.718 kg Results CBC & Chem 7: 07/28/22 05:19 07/28/22 05:19 Labs: Abnormal Lab Results - Last 24 Hours (Table) 07/28/22 07/28/22 07/28/22 Range/Units 05:19 05:19 05:19 RBC 3.30 L (3.80-5.40) m/uL Hgb 10.2 L (11.4-16.0) gm/dL Hct 30.0 L (34.0-46.0) % APTT 21.2 L (22.0-30.0) sec D-Dimer (<0.60) mg/L FEU Glucose 253 H (74-99) mg/dL 07/28/22 Range/Units 08:37 RBC (3.80-5.40) m/uL Hgb (11.4-16.0) gm/dL Hct (34.0-46.0) % APTT (22.0-30.0) sec D-Dimer 4.26 H (<0.60) mg/L FEU Glucose (74-99) mg/dL Thrombosis Risk Factor Assmnt - Choose All That Apply Any of the Below Risk Factors Present?: No Other Risk Factors: No Other congenital or acquired thrombophilia - If yes, enter type in comment: No Thrombosis Risk Factor Assessment Level: Very Low Risk
[2022-07-28 12:36] LABS: Glucose,Whole Blood 133 mg/dL (70-110)
[2022-07-28] MEDS: lisinopriL 5 MG TAB PO SCH (13:26)
[2022-07-28] MEDS: INSULIN ASPART (NovoLOG) 100 UNIT/ML VIAL SQ SCH ×3 (13:26→22:55)
[2022-07-28 17:42] LABS: Glucose,Whole Blood 156 mg/dL (70-110)
[2022-07-28] MEDS: HEPARIN SODIUM,PORCINE/PF 5,000 UNIT/0.5 ML SYRINGE SQ SCH ×2 (18:06→22:56)
--- NOTE | 2022-07-28 19:49 | CA ---
Transthoracic Echo Report Name: Linette Rai Age: 41 Gender: F : 1980 Exam Date: 07/28/2022 10:55 Exam Location: [facility] Echo Ht (in): 69 Wt (lb): 200 Ordering Physician: Veronica Davis Attending/Referring Phys: [id number], Ryan Tugboat Dispatcher Addis Salmon, NABILA Procedure CPT: Indications: LV function Cardiac Hx: Technical Quality: Good Contrast 1: N/A Total Dose (mL): Contrast 2: Total Dose (mL): MEASUREMENTS (Male / Female) Normal Values 2D ECHO LV Diastolic Diameter PLAX 4.1 cm 4.2 - 5.9 / 3.9 - 5.3 cm LV Systolic Diameter PLAX 2.6 cm IVS Diastolic Thickness 1.1 cm 0.6 - 1.0 / 0.6 - 0.9 cm LVPW Diastolic Thickness 1.1 cm 0.6 - 1.0 / 0.6 - 0.9 cm LV Relative Wall Thickness 0.5 RV Internal Dim ED PLAX 3.1 cm LA Volume 57.2 cm??? 18 - 58 / 22 - 52 cm??? M-MODE Aortic Root Diameter MM 2.7 cm LA Systolic Diameter MM 2.7 cm LA Ao Ratio MM 1.0 MV E Point Septal Separation 0.2 cm AV Cusp Separation MM 2.1 cm DOPPLER MV Area PHT 4.7 cm??? Mitral E Point Velocity 106.6 cm/s Mitral A Point Velocity 69.9 cm/s Mitral E to A Ratio 1.5 MV Deceleration Time 162.4 ms MV E' Velocity 9.1 cm/s Mitral E to MV E' Ratio 11.7 FINDINGS Left Ventricle Mildly increased septal wall thickness. Mildly increased posterior wall thickness. Left ventricular ejection fraction is estimated at 50-55%. Right Ventricle Normal right ventricular size and function. Right ventricular systolic pressure within normal limits. Right Atrium Normal right atrial size. Left Atrium Mildly increased left atrial volume. Mitral Valve Structurally normal mitral valve. Mild mitral regurgitation. Aortic Valve Trileaflet aortic valve. Tricuspid Valve Structurally normal tricuspid valve. Trace to mild tricuspid regurgitation. Pulmonic Valve Structurally normal pulmonic valve. Pericardium Normal pericardium. Aorta Normal size aortic root and proximal ascending aorta. CONCLUSIONS Normal left ventricular dimension and systolic function Previewed by: Dr. Anish Medrano MD (Electronically Signed) Final Date: 28 July 2022 19:48
[2022-07-28 22:16] LABS: Glucose,Whole Blood 200 mg/dL (70-110)
[2022-07-29 06:15] LABS: Glucose,Whole Blood 186 mg/dL (70-110)
[2022-07-29] MEDS: SODIUM CHLORIDE 0.9% 1,000 ML IV SCH (06:26)
[2022-07-29] MEDS: INSULIN ASPART (NovoLOG) 100 UNIT/ML VIAL SQ SCH ×3 (06:28→17:32)
[2022-07-29 07:32] LABS: Glucose,Whole Blood 203 mg/dL (70-110)
[2022-07-29] MEDS ORDERED: NORETHINDRONE AC ETH ESTRADIOL PO SCH (09:00)
[2022-07-29] MEDS ORDERED: FERROUS SULFATE 325 MG TAB PO SCH (09:00)
[2022-07-29] MEDS ORDERED: ASPIRIN 81 MG PO SCH (09:00)
[2022-07-29] MEDS ORDERED: ASPIRIN 325 MG TAB PO SCH (09:00)
[2022-07-29] MEDS ORDERED: IBUPROFEN 400 MG TAB PO PRN (09:03)
[2022-07-29 09:20] LABS: Chol/HDL Ratio 3.51 Ratio; LDL Cholesterol,Calculated 94.6 mg/dL (0.0-131.0)
[2022-07-29] MEDS: HEPARIN SODIUM,PORCINE/PF 5,000 UNIT/0.5 ML SYRINGE SQ SCH ×2 (09:24→16:33)
[2022-07-29] MEDS: lisinopriL 5 MG TAB PO SCH (09:25)
--- NOTE | 2022-07-29 09:59 | P.PN ---
Subjective Progress Note Date: 07/29/22 HISTORY OF PRESENT ILLNESS: This is a 41-year-old female with a past medical history significant for hypertension, diabetes, and former nicotine dependence. Patient does not follow with a commodity broker. We have been asked to see the patient in consultation for chest pain. Patient examined at the bedside. Patient states she was having some nausea and dry heaving. She reports shortly after she began having pain in the middle of her chest. EMS was called. She received aspirin and nitro x 2. She did report some relief at the second nitro. The patient currently denies chest pain or SOB. She does report some redness and tenderness to her left leg. She states this began after she was traveling home from a 4 hour flight. She states that her dad of a pulmonary embolism at age 44. She reports her mom has a history of hypertension. The patient states that she is prescribed lisinopril on an outpatient basis but she does not always take it. She denies any previous history of coronary artery disease. * EKG reveals sinus mechanism with no signs of acute ischemia * Chest xray negative for acute process * Venous Doppler: Long segment acute superficial venous thrombosis in the left greater saphenous vein extending to level of groin * Chest CT: Negative for PE. There is marked mediastinal and bilateral hilar lymphadenopathy correlate for history of malignancy including lymphoma. No coronary artery calcium lesion or pericardial effusion noted. Aorta of normal caliber. * Laboratory data: WBC 8.7. Hemoglobin 10.2. Platelet count 395. D-dimer 4.26. Sodium 137. Potassium 4.3. BUN 8. Creatinine 0.56. Troponin negative 2. ProBNP 39. * Current home cardiac medications include lisinopril 5 mg daily 07/29/2022 Patient examined this morning at the bedside. Patient denies any further episodes of chest pain or pressure. She denies shortness of breath. Echocardiogram completed revealing ejection fraction 50-55%, mild MR, trace to mild TR. Vital signs are stable. PHYSICAL EXAM: VITAL SIGNS: Reviewed. GENERAL: Well-developed in no acute distress. HEENT: Head is normocephalic. Pupils are equal, round. Sclerae anicteric. Mucous membranes of the mouth are moist. Neck supple. No JVD or thyromegaly LUNGS: Respirations even and unlabored. Lungs essentially clear to auscultation bilaterally. HEART: Regular rate and rhythm. S1 and S2 heard. ABDOMEN: Soft. Nondistended. Nontender. EXTREMITIES: Normal range of motion. No clubbing or cyanosis. Peripheral pulses intact. Erythema noted to left lower leg NEUROLOGIC: Awake and alert. Oriented x 3. ASSESSMENT: Chest pain, troponin negative x 2, ACS ruled out Hypertension, not complaint with lisinopril outpatient Left lower extremity superficial venous thrombosis Mediastinal and bilateral hilar lymphadenopathy, rule out malignancy Diabetes Former nicotine dependence PLAN: Continue current cardiac medications Oncology consulted for abnormal computed tomography scan Defer any stress testing until evaluation by oncology. Likely to be performed on an outpatient basis. Further recommendations pending patient course Nurse practitioner note has been reviewed by physician. Signing provider agrees with the documented findings, assessment, and plan of care. Objective - Vital Signs Vital signs: Vital Signs Temp 97.6 F 07/29/22 07:00 Pulse 81 07/29/22 07:00 Resp 18 07/29/22 09:13 BP 114/70 07/29/22 09:24 Pulse Ox 99 07/29/22 07:00 FiO2 Intake & Output 07/28/22 07/29/22 07/29/22 18:59 06:59 18:59 Weight 90.718 kg Other: Voiding Method Toilet # Voids 0 2 - Labs CBC & Chem 7: 07/28/22 05:19 07/28/22 05:19 Labs: Abnormal Lab Results - Last 24 Hours (Table) 07/28/22 07/28/22 07/28/22 Range/Units 05:19 12:25 17:35 POC Glucose (mg/dL) 133 H 156 H (70-110) mg/dL Hemoglobin A1c 8.5 H (0.0-6.0) % 07/28/22 07/29/22 07/29/22 Range/Units 22:15 06:14 07:22 POC Glucose (mg/dL) 200 H 186 H 203 H (70-110) mg/dL Hemoglobin A1c (0.0-6.0) %
[2022-07-29 12:10] LABS: Glucose,Whole Blood 185 mg/dL (70-110)
[2022-07-29] MEDS ORDERED: CYCLOBENZAPRINE 5 MG TAB PO STA (12:24)
[2022-07-29 13:37] VITALS: TEMP 98.3
[2022-07-29 13:39] VITALS: BP 120/76; PULSE 89; RESP 14
--- NOTE | 2022-07-29 15:48 | P.PN ---
Subjective Progress Note Date: 07/29/22 Principal diagnosis: chest pain Hospital Course: Patient is a 41-year-old female with history of menorrhagia, hypertension, diabetes, and diabetic gastroparesis presenting with chest pain. Patient has a history of menorrhagia secondary to adenomyosis, and was started on tranexamic acid and estrogen based contraceptives. Patient also had a recent trip to [facility], and shortly after developed left inner thigh redness and pain. Patient found to have superficial venous thrombosis in the left greater saphenous vein extending to the level of groin. CTA chest showed no evidence of pulmonary embolism but did show marked mediastinal and bilateral hilar lymphadenopathy. Cardiology was consulted. ACS ruled out, deferred any stress testing until evaluation by oncology. Likely to be performed on an outpatient basis. Oncology consulted, pending recommendations. Subjective: Patient seen and examined at bedside. No acute events overnight. She denies any significant chest pain, occasional tenderness. She denies any abdominal pain, nausea, vomiting, diarrhea, constipation, or urinary complaints. She does claim that her menorrhagia is beginning to get worse again. Pertinent positives and negatives as discussed above, a complete review of systems was performed and all other systems are negative. Vitals Signs Reviewed. General: nontoxic, no distress, appears at stated age Derm: warm, dry Head: atraumatic, normocephalic, symmetric Eyes: EOMI, no lid lag, anicteric sclera, pupils equal round reactive to light ENT: Nose and ears atraumatic Neck: No thyromegaly Mouth: no lip lesion, mucus membranes moist Cardiovascular: S1S2 reg, no murmur, no edema, chest slight tenderness to palpation at the sternum Lungs: clear to auscultation bilateral, no rhonchi, no rales, no wheeze, no accessory muscle use Abdominal: soft, nontender to palpation, no guarding, no appreciable organomegaly Ext: no gross muscle atrophy, muscle strength muscle strength 5 out of 5 in all 4 extremities, no contractures Neuro: CN II-XII grossly intact Psych: Alert, oriented, appropriate affect Assessment and Plan: Acute chest pain -Less likely ACS, negative troponin -CTA chest negative for PE -Cardiology consulted -Echo LVEF 50-55% -Telemetry Elevated d-dimer Acute left greater saphenous superficial venous thrombosis -Likely in the setting of tranexamic acid and estrogen based contraceptive use -Warm compress -CTA chest negative for PE Mediastinal and hilar lymphadenopathy -Noted on CTA chest -Concern for possible lymphoma -Oncology consult, recommendations pending Menorrhagia Adenomyosis -hold tranexamic acid -Ray started contraceptives Hypertension -lisinopril DM gastroparesis -SSI, reglan DVT ppx: Heparin subcu Code status: Full code Anticipated discharge place: Home Anticipated discharge time: Either today or tomorrow Objective - Vital Signs Vital signs: Vital Signs Temp 98.3 F 07/29/22 13:37 Pulse 89 07/29/22 13:37 Resp 14 07/29/22 13:37 BP 120/76 07/29/22 13:37 Pulse Ox 100 07/29/22 13:37 FiO2 Intake & Output 07/28/22 07/29/22 07/29/22 18:59 06:59 18:59 Intake Total 240 Balance 240 Weight 90.718 kg Intake: Oral 240 Other: Voiding Method Toilet # Voids 0 2 - Labs CBC & Chem 7: 07/28/22 05:19 07/28/22 05:19 Labs: Abnormal Lab Results - Last 24 Hours (Table) 07/28/22 07/28/22 07/28/22 Range/Units 05:19 17:35 22:15 POC Glucose (mg/dL) 156 H 200 H (70-110) mg/dL Hemoglobin A1c 8.5 H (0.0-6.0) % 07/29/22 07/29/22 07/29/22 Range/Units 06:14 07:22 11:59 POC Glucose (mg/dL) 186 H 203 H 185 H (70-110) mg/dL Hemoglobin A1c (0.0-6.0) %
[2022-07-29 17:02] LABS: Glucose,Whole Blood 227 mg/dL (70-110)
--- NOTE | 2022-07-29 17:03 | P.DS ---
Providers Date of admission: 07/28/22 06:14 Expected date of discharge: 07/29/22 Attending physician: García Mir MD Consults: 07/28/22 06:13 Consult Physician Urgent Consulting Provider: Bhavin Nunez Consult Reason/Comments: cp Do you want consulting provider notified?: Yes 07/28/22 12:11 Consult Physician Routine Consulting Provider: Chavo De Anda Consult Reason/Comments: Mediastinal lymphadenopathy concerning for lymphoma Do you want consulting provider notified?: Yes Primary care physician: Alfie Ashley Hospital Course: Discharge Diagnosis: Acute chest pain Elevated d-dimer Acute left greater saphenous superficial vein thrombosis Mediastinal and hilar lymphadenopathy Menorrhagia Adenomyosis Hypertension Diabetes Gastroparesis Hospital Course: Patient is a 41-year-old female with history of menorrhagia, hypertension, diabetes, and diabetic gastroparesis presenting with chest pain. Patient has a history of menorrhagia secondary to adenomyosis, and was started on tranexamic acid and estrogen based contraceptives. Patient also had a recent trip to [place], and shortly after developed left inner thigh redness and pain. Patient found to have superficial venous thrombosis in the left greater saphenous vein extending to the level of groin. CTA chest showed no evidence of pulmonary embolism but did show marked mediastinal and bilateral hilar lymphadenopathy. Cardiology was consulted. ACS ruled out, deferred any stress testing until evaluation by oncology. Likely to be performed on an outpatient basis. Oncology consulted, lymphadenopathy likely setting of recent flu vaccine. Patient does not have any constitutional symptoms concerning for malignancy. Recommended repeating chest CT in 4-6 weeks. Patient also to be started on prophylactic anticoagulation given the location of superficial vein thrombosis. She will continue xarelto 10 mg daily for 45 days. In the meantime, patient can continue to take oral contraceptives for adenomyosis. Patient to avoid tranexamic acid. In the event of heavy bleeding, patient will stop anticoagulation and contact her provider. Patient to see her CAPACITY MANAGER as an outpatient. Patient seen and examined at bedside. Vital signs reviewed and stable. General: nontoxic, no distress, appears at stated age Derm: warm, dry Head: atraumatic, normocephalic, symmetric Eyes: EOMI, no lid lag, anicteric sclera, pupils equal round reactive to light ENT: Nose and ears atraumatic Neck: No thyromegaly Mouth: no lip lesion, mucus membranes moist Cardiovascular: S1S2 reg, no murmur, no edema, chest slight tenderness to palpation at the sternum Lungs: clear to auscultation bilateral, no rhonchi, no rales, no wheeze, no accessory muscle use Abdominal: soft, nontender to palpation, no guarding, no appreciable organomegaly Ext: no gross muscle atrophy, muscle strength muscle strength 5 out of 5 in all 4 extremities, no contractures Neuro: CN II-XII grossly intact Psych: Alert, oriented, appropriate affect A total of 50 minutes of time were spent preparing this complex discharge summary. Patient was discharged on 07/29/22 at 16:56. Patient Condition at Discharge: Stable Plan - Discharge Summary Discharge Rx Participant: No New Discharge Prescriptions: New Aspirin 81 mg PO DAILY #30 tab Rivaroxaban [Xarelto] 10 mg PO DAILY #45 tab lisinopriL [Zestril] 5 mg PO DAILY #30 tab Continue norethindrone ac-eth estradioL [Gerardo 21 1-20 Tablet] 1 tab PO DAILY Metoclopramide HCl [Reglan] 10 mg PO TID PRN PRN Reason: Nausea And Vomiting Ferrous Gluconate 324 mg PO DAILY Dulaglutide [Trulicity] 3 mg SQ RUBIO Discharge Medication List Dulaglutide [Trulicity] 3 mg SQ RUBIO 07/28/22 [History] Ferrous Gluconate 324 mg PO DAILY 07/28/22 [History] Metoclopramide HCl [Reglan] 10 mg PO TID PRN 07/28/22 [History] norethindrone ac-eth estradioL [Gerardo 21 1-20 Tablet] 1 tab PO DAILY 07/28/22 [History] Aspirin 81 mg PO DAILY #30 tab 07/29/22 [Rx] Rivaroxaban [Xarelto] 10 mg PO DAILY #45 tab 07/29/22 [Rx] lisinopriL [Zestril] 5 mg PO DAILY #30 tab 07/29/22 [Rx] Follow up Appointment(s)/Referral(s): Gabi Judge MD [Primary Care Provider] - 1-2 days Patient Instructions/Handouts: Chest Pain (ED) Activity/Diet/Wound Care/Special Instructions: Please see oncology for repeat CT of your chest in 4-6 weeks. They will call and schedule your appointment. In the meantime, please see your CAPACITY MANAGER for alternative hormonal therapy for heavy menstrual periods. Due to the location of blood clot in your left leg, oncology is recommending to take low dose xarelto for 45 days. It is a blood thinner. If you experience heavier than normal menstrual bleeding, please stop taking xarelto and contact your provider. Follow up with PCP in 1-2 days and you may need stress test for chest pain in the future. Discharge Disposition: HOME SELF-CARE
--- NOTE | 2022-07-29 19:43 | P.CONS ---
History of Present Illness - Reason for Consult Consult date: 07/29/22 Provoked, Superficial GSV clot Requesting physician: Sergio Navarrete - Chief Complaint Substernal chest heaviness and tightness - History of Present Illness Ms. Rai is a very pleasant 41-year-old female we have been asked to see in regards to mediastinal lymphadenopathy as well as a superficial greater saphenous vein blood clot. Patient states that she starting having a chest pain, squeezing sensation, denied any radiating pain up the neck or down the arm, nothing through to the back, no diaphoresis, indigestion, heartburn, she came to the emergency room to be assessed. CTA was negative for PE, incidentally found LAD in the chest. Patient denied any recent illnesses, night sweats, unintentional weight loss, unusual changes in energy levels. Patient reported receiving a flu vaccine in the last few weeks, she did have some symptoms suggestive of allergic reaction, she took some Benadryl for few days and this resolved. Patient denies any cough or shortness of breath. She also had pain in her right leg, Doppler was positive for greater saphenous vein superficial clot, extending above the knee almost to the groin. Patient reports she was recently put on fibrinolytic inhibitor and/or control for severe uterine bleeding-While she was in [place] and went to the ER. She reports occasional lymph node swellings in the axilla. No other unusual symptoms to report. Review of Systems 10 point review of systems is negative except as stated in HPI Past Medical History Past Medical History: Hypertension Additional Past Medical History / Comment(s): gestational diabetes, migraines, herniated disc, sacroilliac joint pain History of Any Multi-Drug Resistant Organisms: None Reported Past Surgical History: Back Surgery, Section Additional Past Surgical History / Comment(s): nasel sx Past Anesthesia/Blood Transfusion Reactions: No Reported Reaction Past Psychological History: No Psychological Hx Reported Smoking Status: Former smoker Past Alcohol Use History: Occasional Past Drug Use History: None Reported - Past Family History Father Family Medical History: Pulmonary Embolus Medications and Allergies Home Medications Medication Instructions Recorded Confirmed Type Dulaglutide [Trulicity] 3 mg SQ RUBIO 07/28/22 07/28/22 History Ferrous Gluconate 324 mg PO DAILY 07/28/22 07/28/22 History Metoclopramide HCl [Reglan] 10 mg PO TID PRN 07/28/22 07/28/22 History norethindrone ac-eth estradioL 1 tab PO DAILY 07/28/22 07/28/22 History [Gerardo 21 1-20 Tablet] Aspirin 81 mg PO DAILY #30 tab 07/29/22 Rx Rivaroxaban [Xarelto] 10 mg PO DAILY #45 tab 07/29/22 Rx lisinopriL [Zestril] 5 mg PO DAILY #30 tab 07/29/22 Rx Allergies Allergy/AdvReac Type Severity Reaction Status Date / Time venom-honey bee Allergy Severe Anaphylaxis Verified 07/28/22 11:35 [bee venom (honey bee)] sulfisoxazole acetyl AdvReac Severe Nausea & Verified 07/28/22 11:35 [From Pediazole] Vomiting & Diarrhea clindamycin AdvReac Nausea & Verified 07/28/22 11:35 Vomiting & Diarrhea corn AdvReac Rash/Hives Verified 07/28/22 11:35 egg AdvReac Rash/Hives Verified 07/28/22 11:35 erythromycin ethylsuccinate AdvReac Nausea & Verified 07/28/22 11:35 [From Pediazole] Vomiting & Diarrhea Milk Containing Products AdvReac Rash/Hives Verified 07/28/22 11:35 [Dairy] wheat AdvReac Rash/Hives Verified 07/28/22 11:35 Physical Exam Vitals: Vital Signs Temp Pulse Pulse Resp BP BP Pulse Ox 07/29/22 13:37 98.3 F 89 89 14 120/76 100 07/29/22 13:36 98.3 F 90 18 108/73 99 07/29/22 09:24 114/70 07/29/22 09:13 18 07/29/22 07:00 97.6 F 81 18 99/65 99 07/29/22 02:34 98.1 F 89 15 117/81 99 07/28/22 19:56 98.1 F 79 16 133/73 98 Intake and Output 07/29/22 07/29/22 07/29/22 06:59 14:59 22:59 Intake Total 240 Balance 240 Intake: Oral 240 Other: # Voids 2 2 - Constitutional General appearance: average body habitus, cooperative, no acute distress - EENT Eyes: anicteric sclerae, EOMI ENT: hearing grossly normal, normal oropharynx - Neck Neck: no lymphadenopathy - Respiratory Respiratory: bilateral: CTA - Cardiovascular Rhythm: regular Heart sounds: normal: S1, S2 Abnormal Heart Sounds: no systolic murmur, no diastolic murmur, no rub, no S3 Gallop, no S4 Gallop, no click, no other leg Peripheral Edema: right: Trace, left: None - Gastrointestinal General gastrointestinal: no absent bowel sounds, no decreased bowel sounds, no distended, no hepatomegaly, no hyperactive bowel sounds, normal bowel sounds, no organomegaly, no rigid, no scaphoid, soft, no splenomegaly, no tenderness, no umbilical hernia, no ventral hernia - Integumentary Integumentary: normal - Neurologic Neurologic: CNII-XII intact - Musculoskeletal Musculoskeletal: strength equal bilaterally - Psychiatric Psychiatric: A&O x's 3, appropriate affect, intact judgment & insight Results CBC & Chem 7: 07/28/22 05:19 07/28/22 05:19 Labs: Abnormal Lab Results - Last 24 Hours (Table) 07/28/22 07/28/22 07/29/22 Range/Units 05:19 22:15 06:14 POC Glucose (mg/dL) 200 H 186 H (70-110) mg/dL Hemoglobin A1c 8.5 H (0.0-6.0) % 07/29/22 07/29/22 07/29/22 Range/Units 07:22 11:59 16:56 POC Glucose (mg/dL) 203 H 185 H 227 H (70-110) mg/dL Hemoglobin A1c (0.0-6.0) % Comments: Echo report reviewed CT scan - chest: report reviewed Venous US: report reviewed Assessment and Plan (1) Mediastinal lymphadenopathy Status: Acute Priority: Medium Code(s): R59.0 - LOCALIZED ENLARGED LYMPH NODES SNOMED Code(s): 28356839 Plan: Mediastinal lymphadenopathy: Plan is for a short-term follow-up image. Patient has no constitutional Symptoms. She did recently get vaccinated for the flu and did have some throat tightening which she took Benadryl. Patient does have An egg allergy. This adenopathy may be related to the same. We will follow up. Superficial, greater saphenous vein clot. Says above the knee. There is a risk of this propagating into a DVT. This is a provoked clot as patient is on oral control also on a fibrinolysis inhibitor for severe uterine bleeding. She also had recent travel to [place] and admits to not getting up much during the flight. Recommendation is for 45 days prophylactic dose Xarelto, 10 mg. Up with Hem/Onc in about 4-6 weeks. attests: I have seen and examined pt, performed H&P, developed impression and plan of care. Discussed with dictator. Agree with documentation, dictated as a scribe.
== END 2022-07-29 18:49 | disposition home or self-care (01) ==
LOC: EC 05:14 → 6NMEDSUR 06:14
PROVIDERS: ADMIT Internal Medicine; ATTEND Internal Medicine
DX: R07.89 Other chest pain (principal); I82.812 Embolism and thrombosis of superficial veins of left lower extremity; I10 Essential (primary) hypertension; K31.84 Gastroparesis; E11.43 Type 2 diabetes mellitus with diabetic autonomic (poly)neuropathy; D64.9 Anemia, unspecified; N80.03 Adenomyosis of the uterus; I08.1 Rheumatic disorders of both mitral and tricuspid valves; Z79.899 Other long term (current) drug therapy; Z79.84 Long term (current) use of oral hypoglycemic drugs; Z87.891 Personal history of nicotine dependence; Z82.49 Family history of ischemic heart disease and other diseases of the circulatory system; Z83.2 Family history of diseases of the blood and blood-forming organs and certain disorders involving the immune mechanism; Z79.01 Long term (current) use of anticoagulants; Z79.82 Long term (current) use of aspirin
CPT/HCPCS: 96372 ×2; 99285; 36415; 93005; 93306; 85379; 83880; 80061; 80053; 83690; 83735; 84484; 85025; 85610; 85730; 83036; 71045; 93970; 71275; G0378 ×2; Q9967; J1644 ×2

== ENCOUNTER → 2022-09-01 | Outpatient (CLI) | payer BC ==
[2022-09-01 09:55] LABS: African American GFR (CKD) >90 (>60 ml/min/1.73 sqM); Blood Urea Nitrogen 4 mg/dL (7-17); Non-African American GFR(CKD) >90 (>60 ml/min/1.73 sqM)
--- NOTE | 2022-09-01 11:04 | CT ---
EXAMINATION TYPE: CT chest w con DATE OF EXAM: 09/01/2022 COMPARISON: 07/28/2022 HISTORY: Lymphadenopathy CT DLP: 646 mGycm Automated exposure control for dose reduction was used. TECHNIQUE: CT scan of the chest is performed with IV Contrast, patient injected with 70 mL of Isovue 300. MIP I mages are created on CT scanner and reviewed. 3D reconstructed images are created on an independent w orkstation and reviewed. FINDINGS: LUNGS: The lungs are grossly clear, there is no concerning parenchymal mass or nodule identified. T here is no pleural effusion or pneumothorax seen. The tracheobronchial tree is patent. MEDIASTINUM: There are multiple pathologic sized lymph nodes throughout the mediastinum and hilum. Th e Subcarinal adenopathy measures 2.3 cm in short axis and stable. Right hilar adenopathy measuring short axis of 2.6 cm. Left hilar lymphadenopathy measures short axis I.1 cm. There is extensive additional mediastinal adenopathy with reference to the pretracheal space and prev ascular space with the largest pretracheal node measuring a short axis I.4 cm and stable. Heart size normal. No coronary artery calcium lesion or pericardial effusion. Aorta normal caliber. OTHER: Hypertrophic and degenerative changes of the spine. Small hiatal hernia noted. There is soft tissue fullness in the periportal region which could represent additional areas of adenopathy which a re only partially included in the field of view and on the final image of the exam. IMPRESSION: 1. Extensive mediastinal and hilar adenopathy which is stable from prior exam. Differential diagnosis would include malignancy including lymphoma, reactive lymphadenopathy and sarcoidosis. No sizable pu lmonary nodule or evidence of consolidative pneumonia. Correlate clinically. 2. Question of abdominal adenopathy in the periportal region. Recommend follow-up CT of the abdomen a nd pelvis.
== END | disposition home or self-care (01) ==
LOC: RADCTMAIN 08:51
PROVIDERS: ATTEND Internal Medicine
DX: D86.9 Sarcoidosis, unspecified (principal); R59.0 Localized enlarged lymph nodes
CPT/HCPCS: 82565; 84520; 71260; 36415; Q9967

== ENCOUNTER → 2022-09-16 | Outpatient (CLI) | payer BC ==
[2022-09-16 10:46] LABS: African American GFR (CKD) >90 (>60 ml/min/1.73 sqM); Blood Urea Nitrogen 8 mg/dL (7-17); Non-African American GFR(CKD) >90 (>60 ml/min/1.73 sqM)
--- NOTE | 2022-09-16 12:52 | CT ---
EXAMINATION TYPE: CT abdomen pelvis w con CT DLP: 1436.3 mGycm, Automated exposure control for dose reduction was used. DATE OF EXAM: 09/16/2022 12:30 PM COMPARISON: CT abdomen pelvis most recent from 06/28/2019 sacrum, chest CT 09/01/2022, CT lumbar spi ne 06/28/2019. CLINICAL INDICATION:Female, 42 years old with history of R59.0 LOCALIZED ENLARGED LYMPH NODES; enlarg ed lymph nodes TECHNIQUE: Axial CT of the abdomen and pelvis. Sagittal and coronal reformats were created on a [employer] workstation. Contrast used:70cc mL of Isovue 300 with IV Contrast, Oral contrast used: with Oral Contrast FINDINGS: LOWER CHEST: Unremarkable ABDOMEN LIVER: Diffusely hypoattenuating parenchyma. GALLBLADDER AND BILE DUCTS: Unremarkable. PANCREAS: Unremarkable. SPLEEN: Small splenule is present. ADRENAL GLANDS: Unremarkable. KIDNEYS AND URETERS: No evidence of hydronephrosis or renal calculus. The ureters are unremarkable. PELVIS BLADDER: Unremarkable REPRODUCTIVE: Intrauterine device seen within the endometrium. Left ovarian follicle measuring up to 2.8 cm. ABDOMEN & PELVIS STOMACH AND BOWEL: No evidence of bowel obstruction. Appendix is normal. PERITONEUM: No evidence of pneumoperitoneum or free fluid. VASCULATURE: No evidence of aortic aneurysm. MUSCULOSKELETAL: No acute osseous abnormalities LYMPH NODES: There are multiple upper abdominal lymph nodes which are enlarged largest in the retrope ritoneum measuring up to 14 mm in short axis, peripancreatic lymph nodes are also present measuring u p to 15 mm in short axis (series 8 image 52 and image 54 respectively. There is extensive soft tissue fullness within the jana hepatis. Evaluation slightly limited due to near similar attenuation of th e soft tissue structures. There is felt to be an enlarged jana portacaval lymph node measuring up to 19 mm in short axis. SOFT TISSUE/ABDOMINAL WALL: Unremarkable IMPRESSION: 1Multiple upper abdominal mildly enlarged lymph nodes as well as soft tissue fullness in the jana he patis which is suboptimally evaluated given similar attenuation to the soft tissue structures. Soft t issue fullness could represent more lymphadenopathy given history of lymphadenopathy within the chest . These findings are new from CT lumbar spine 06/28/2019. Differential includes malignancy such as ly mphoma, reactive lymphadenopathy and sarcoidosis given findings in the chest.
== END | disposition home or self-care (01) ==
LOC: RADCTMAIN 10:01
PROVIDERS: ATTEND Internal Medicine
DX: R59.0 Localized enlarged lymph nodes (principal)
CPT/HCPCS: 82565; 84520; 74177; 36415; Q9967

== ENCOUNTER → 2022-10-07 | Outpatient (CLI) | payer BC ==
[2022-10-07 14:56] LABS: Basophils # (A) 0.01 X 10*3/uL (0.00-0.10); Basophils % (A) 0.2 %; Eosinophils # (A) 0.23 X 10*3/uL (0.04-0.35); Eosinophils % (A) 3.5 %; Immature Grans, Automated 0.5 %; Lymphocytes # (A) 1.37 X 10*3/uL (0.90-5.00); Lymphocytes % (A) 20.8 %; MCH 28.9 pg (27.0-32.0); MCHC 31.3 g/dL (32.0-37.0); MCV 92.5 fL (80.0-97.0); Mean Platelet Volume 11.4 fL (9.5-12.2); Monocytes # (A) 0.48 X 10*3/uL (0.20-1.00); Monocytes % (A) 7.3 %; NRBC Per 100 WBC 0 /100 WBCS (0.0-0.0); Neutrophils # (A) 4.47 X 10*3/uL (1.80-7.70); Neutrophils % (A) 67.7 %; Platelet Count 401 X 10*3/uL (140-440); RBC 3.46 X 10*6/uL (4.10-5.20); RDW 14.8 % (11.5-14.5); WBC 6.59 X 10*3/uL (4.50-10.00)
[2022-10-07 16:01] LABS: Erythrocyte Sedimentation Rate 23 mm/Hr (0-20)
== END | disposition home or self-care (01) ==
LOC: LABWHC1 10:28
PROVIDERS: ATTEND Internal Medicine
DX: D86.9 Sarcoidosis, unspecified (principal)
CPT/HCPCS: 36415; 82164; 82310; 85025; 85652

== ENCOUNTER → 2023-02-09 | Outpatient (CLI) | payer BC ==
--- NOTE | 2023-02-09 14:36 | US ---
EXAMINATION TYPE: US thyroid st tissue head/neck DATE OF EXAM: 02/09/2023 COMPARISON: NONE CLINICAL INDICATION: Female, 42 years old with history of R13.10 DYSPHAGIA, UNSPECIFIED E01.0 THYROM EGALY; tightness in throat GLAND SIZE: Right Lobe: 4.6 x 1.7 x 1.8cm Overall Parenchyma: homogenous Left Lobe: 4.2 x 1.5 x 1.7cm Overall Parenchyma: homogeneous Isthmus Thickness: 0.3 cm NODULES RIGHT: # of nodules measured on right: 0 LEFT: # of nodules measured on left: 0 ISTHMUS: # of nodules measured in the isthmus: 0 Bilateral neck scanned, no evidence of lymphadenopathy. IMPRESSION: No evidence for suspicious mass. No thyroid nodules.
== END | disposition home or self-care (01) ==
LOC: RADUSWWP 12:19
PROVIDERS: ATTEND Family Medicine
DX: E01.0 Iodine-deficiency related diffuse (endemic) goiter (principal); R13.10 Dysphagia, unspecified
CPT/HCPCS: 76536

== ENCOUNTER → 2023-03-02 | Outpatient (CLI) | payer BC ==
--- NOTE | 2023-03-02 19:29 | CA ---
Exercise Stress Test Report Name: Linette Rai Exam Date: 03/02/2023 09:46 Exam Location: [facility] Stress Ht (in): 67 Wt (lb): 320 BSA: 2.47 Ordering Phys: Micki Munoz Referring Phys: Micki Munoz Technologist: Main Flores Age: 42 Gender: F : 1980 Procedure CPT: Indications: R07.9 ICD-10 Codes: Patient History: Medications: lisinopril, trulicity, lipitor Meds past 24 hrs: Pretest Chest Pain: STRESS TEST Luis Miguel Protocol Exercise Duration (min:sec): 09:[address] Depressions (mm): 0 Angina Score: 0 Tidwell Score: 9 Resting HR (bpm): 92 Peak HR (bpm): 168 Resting BP (mmHg): 131 / 80 Peak BP (mmHg): 173 / 82 MPHR: 180 Target HR: 153 % MPHR: 93 METS: 10.5 Total Dose: Peak Dose: Atropine: Double Product: 29285 BP Response: Stress Termination: MAX EXERTION/TARGET HR Stress Symptoms: CHEST PAIN Stress Summary: The patient's target heart rate was achieved, The hemodynamic response to exercise was normal ECG ANALYSIS Resting ECG: Sinus rhythm. Normal conduction. No arrhythmias. Normal repolarization. Stress ECG: No ECG evidence of ischemia with exercise. CONCLUSIONS Patient falls into low-risk group (DTS >= +5). This associates the patient with an annual CV mortality <= 0.5%. 1. Good exercise tolerance 2. Normal electrocardiographic response to exercise with no evidence of exercise induced ischemia Dr. Bhavin Nunez MD (Electronically Signed) Final Date: 02 March 2023 19:28
== END | disposition home or self-care (01) ==
LOC: RADNMMAIN 09:12
PROVIDERS: ATTEND Nurse Practitioner Family
DX: R07.9 Chest pain, unspecified (principal)
CPT/HCPCS: 93017

== ENCOUNTER 2023-10-11 17:14 | Observation (INO) | payer BC, OTHER ==
--- NOTE | 2023-10-11 17:52 | XR ---
EXAMINATION TYPE: XR chest 2V DATE OF EXAM: 10/11/2023 5:47 PM CLINICAL INDICATION:Female, 43 years old with history of Chest Pain; [facility] COMPARISON: Chest radiographs from 10/21/2022 TECHNIQUE: XR chest 2V Frontal and lateral views of the chest. FINDINGS: Lungs/Pleura: There is no evidence of pleural effusion, focal consolidation, or pneumothorax. Pulmonary vascularity: Unremarkable. Heart/mediastinum: Cardiomediastinal silhouette is unremarkable. Musculoskeletal: No acute osseous pathology. IMPRESSION: No acute cardiopulmonary disease/process.
--- NOTE | 2023-10-11 18:57 | ED ---
General Adult HPI - General Chief complaint: Chest Pain Stated complaint: Chest pain,Hypertension Time Seen by Provider: 10/11/23 18:49 Source: patient, RN notes reviewed, old records reviewed Mode of arrival: ambulatory Limitations: no limitations - History of Present Illness Initial comments: 43-year-old female presenting for evaluation of central chest pain. Symptoms have come and gone today and yesterday and the patient does report previous history of intermittent chest pain. She has no known history of coronary artery disease. She does have history of hypertension. She reports the pain is sharp and central which is nonradiating. No associated cough or fever. No vomiting or diaphoresis - Related Data Home Medications Medication Instructions Recorded Confirmed Insulin Glargine,Hum.rec.anlog 46 units SQ W/SUPPER 10/11/23 10/11/23 [Tomary Davies Solostar] tiZANidine [Zanaflex] 8 mg PO HS 10/11/23 10/11/23 Previous Rx's Medication Instructions Recorded lisinopriL [Zestril] 5 mg PO DAILY #30 tab 07/29/22 Allergies Allergy/AdvReac Type Severity Reaction Status Date / Time venom-honey bee Allergy Severe Anaphylaxis Verified 10/11/23 17:21 [bee venom (honey bee)] sulfisoxazole acetyl AdvReac Severe Nausea & Verified 10/11/23 17:21 [From Pediazole] Vomiting & Diarrhea clindamycin AdvReac Nausea & Verified 10/11/23 17:21 Vomiting & Diarrhea corn AdvReac Rash/Hives Verified 10/11/23 17:21 egg AdvReac Rash/Hives Verified 10/11/23 17:21 erythromycin ethylsuccinate AdvReac Nausea & Verified 10/11/23 17:21 [From Pediazole] Vomiting & Diarrhea Milk Containing Products AdvReac Rash/Hives Verified 10/11/23 17:21 (Dairy) [Dairy] wheat AdvReac Rash/Hives Verified 10/11/23 17:21 Review of Systems ROS Statement: Those systems with pertinent positive or pertinent negative responses have been documented in the HPI. ROS Other: All systems not noted in ROS Statement are negative. Past Medical History Past Medical History: Diabetes Mellitus, Deep Vein Thrombosis (DVT), Hypertension Additional Past Medical History / Comment(s): MIGRAINES. BACK/DISC ISSUES History of Any Multi-Drug Resistant Organisms: None Reported Past Surgical History: Back Surgery, Section Additional Past Surgical History / Comment(s): NASAL SURG. Past Anesthesia/Blood Transfusion Reactions: No Reported Reaction Additional Past Anesthesia/Blood Transfusion Reaction / Comment(s): ? apnea coming out of anesthesia when intubated Past Psychological History: No Psychological Hx Reported Smoking Status: Former smoker Past Alcohol Use History: Rare Past Drug Use History: None Reported - Past Family History Father Family Medical History: Pulmonary Embolus General Exam Limitations: no limitations General appearance: alert, in no apparent distress Head exam: Present: atraumatic, normocephalic Eye exam: Present: normal appearance, PERRL ENT exam: Present: normal exam Neck exam: Present: normal inspection. Absent: tenderness, meningismus Respiratory exam: Present: normal lung sounds bilaterally. Absent: respiratory distress, wheezes Cardiovascular Exam: Present: regular rate, normal rhythm GI/Abdominal exam: Present: soft, rigid. Absent: distended, tenderness, guarding, rebound Neurological exam: Present: alert, oriented X3 Psychiatric exam: Present: normal affect, normal mood Course Vital Signs 10/11/23 10/11/23 10/11/23 17:17 19:07 19:16 Temperature 98.3 F Pulse Rate 106 H 96 Pulse Rate [ 65 Time Clock Repairer ] Respiratory 20 18 Rate Blood Pressure 159/93 150/102 O2 Sat by Pulse 95 98 Oximetry 10/11/23 20:41 Temperature Pulse Rate 89 Pulse Rate [ Time Clock Repairer ] Respiratory 16 Rate Blood Pressure 158/92 O2 Sat by Pulse 99 Oximetry Medical Decision Making - Medical Decision Making Was pt. sent in by a medical professional or institution (, PA, PILL PACKER, urgent care, hospital, or shelter...) When possible be specific @ -No Did you speak to anyone other than the patient for history (EMS, parent, family, police, friend...)? What history was obtained from this source @ -No Did you review nursing and triage notes (agree or disagree)? Why? @ -I reviewed and agree with nursing and triage notes Were old charts reviewed (outside hosp., previous admission, EMS record, old EKG, old radiological studies, urgent care reports/EKG's, shelter records)? Report findings @ -No old charts were reviewed Differential Diagnosis (chest pain, altered mental status, abdominal pain women, abdominal pain men, vaginal bleeding, weakness, fever, dyspnea, syncope, headache, dizziness, GI bleed, back pain, seizure, CVA, palpatations, mental health, musculoskeletal)? @ -[Differential Chest Pain: Stable Angina, Unstable Angina, STEMI, NSTEMI Aortic Dissection, Pneumothorax, Musculoskeletal, Esophageal Spasm GERD, Cholecystitis, Pancreatitis, Zoster, this is not meant to be an all-inclusive list. EKG interpreted by me (3pts min.). @ -EKG: Sinus rhythm rate of 94, WV interval 152, QRS duration 83, QTc [address] segment elevation. X-rays interpreted by me (1pt min.). @ -Chest x-ray negative for acute cardiopulmonary findings CT interpreted by me (1pt min.). @ -CT angiogram negative for pulmonary embolism U/S interpreted by me (1pt. min.). @ -None done What testing was considered but not performed or refused? (CT, X-rays, U/S, labs)? Why? @ -None What meds were considered but not given or refused? Why? @ -None Did you discuss the management of the patient with other professionals (professionals i.e. , PA, PILL PACKER, lab, RT, psych nurse, social worker assistant, corporate lawyer, teacher, catapult and arresting gear officer, case management coordinator)? Give summary @ -No Was smoking cessation discussed for >3mins.? @ -No Was critical care preformed (if so, how long)? @ -No Were there social determinants of health that impacted care today? How? (Homelessness, low income, unemployed, alcoholism, drug addiction, transportation, low edu. Level, literacy, decrease access to med. care, retirement, rehab)? @ -No Was there de-escalation of care discussed even if they declined (Discuss DNR or withdrawal of care, Hospice)? DNR status @ -No What co-morbidities impacted this encounter? (DM, HTN, Smoking, COPD, CAD, Cancer, CVA, ARF, Chemo, Hep., AIDS, mental health diagnosis, sleep apnea, morbid obesity)? @ -[Sarcoidosis Was patient admitted / discharged? Hospital course, mention meds given and route, prescriptions, significant lab abnormalities, going to OR and other pertinent info. @ -43-year-old female with intermittent chest pain. No typical features. EKG is sinus rhythm without ST segment elevation. Patient has normal CBC, normal CMP with the exception of hyperglycemia. Troponin is negative. D-dimer is elevated however this is downtrending from prior. CT angiography was ordered and is negative for pulmonary embolism. Patient's pain is atypical but she does have risk factors, will be observed for serial cardiac enzymes, telemetry, cardiology consultation. Undiagnosed new problem with uncertain prognosis? @ -No Drug Therapy requiring intensive monitoring for toxicity (Heparin, Nitro, Insulin, Cardizem)? @ -No Were any procedures done? @ -No Diagnosis/symptom? @Chest pain Acute, or Chronic, or Acute on Chronic? @Acute on chronic Uncomplicated (without systemic symptoms) or Complicated (systemic symptoms)? @ -Default Side effects of treatment? @ -No Exacerbation, Progression, or Severe Exacerbation? @ -No Poses a threat to life or bodily function? How? (Chest pain, [place], [place], pneumonia, PE, COPD, DKA, ARF, appy, cholecystitis, CVA, Diverticulitis, Homicidal, Suicidal, threat to staff... and all critical care pts) @ -Low risk at this time - Lab Data Result diagrams: 10/11/23 19:05 10/11/23 19:05 Lab Results 10/11/23 10/11/23 10/11/23 Range/Units 17:27 19:05 19:05 WBC 7.0 (3.8-10.6) k/uL RBC 4.55 (3.80-5.40) m/uL Hgb 13.9 (11.4-16.0) gm/dL Hct 41.8 (34.0-46.0) % MCV 91.8 (80.0-100.0) fL MCH 30.5 (25.0-35.0) pg MCHC 33.2 (31.0-37.0) g/dL RDW 12.5 (11.5-15.5) % Plt Count 389 (150-450) k/uL MPV 8.6 Neutrophils % 66 % Lymphocytes % 21 % Monocytes % 6 % Eosinophils % 6 % Basophils % 1 % Neutrophils # 4.6 (1.3-7.7) k/uL Lymphocytes # 1.5 (1.0-4.8) k/uL Monocytes # 0.4 (0-1.0) k/uL Eosinophils # 0.4 (0-0.7) k/uL Basophils # 0.0 (0-0.2) k/uL PT 9.9 L (10.0-12.5) sec INR 0.9 (<1.2) APTT 24.9 (22.0-30.0) sec D-Dimer 1.49 H (<0.60) mg/L FEU Sodium (137-145) mmol/L Potassium (3.5-5.1) mmol/L Chloride (98-107) mmol/L Carbon Dioxide (22-30) mmol/L Anion Gap mmol/L BUN (7-17) mg/dL Creatinine (0.52-1.04) mg/dL Est GFR (CKD-EPI)AfAm (>60 ml/min/1.73 sqM) Est GFR (CKD-EPI)NonAf (>60 ml/min/1.73 sqM) Glucose (74-99) mg/dL Calcium (8.4-10.2) mg/dL Magnesium (1.6-2.3) mg/dL Total Bilirubin (0.2-1.3) mg/dL AST (14-36) U/L ALT (4-34) U/L Alkaline Phosphatase (38-126) U/L Troponin I (0.000-0.034) ng/mL Total Protein (6.3-8.2) g/dL Albumin (3.5-5.0) g/dL Influenza Type A (PCR) Not Detected (Not Detectd) Influenza Type B (PCR) Not Detected (Not Detectd) RSV (PCR) Not Detected (Not Detectd) SARS-CoV-2 (PCR) Not Detected (Not Detectd) 10/11/23 10/11/23 Range/Units 19:05 19:05 WBC (3.8-10.6) k/uL RBC (3.80-5.40) m/uL Hgb (11.4-16.0) gm/dL Hct (34.0-46.0) % MCV (80.0-100.0) fL MCH (25.0-35.0) pg MCHC (31.0-37.0) g/dL RDW (11.5-15.5) % Plt Count (150-450) k/uL MPV Neutrophils % % Lymphocytes % % Monocytes % % Eosinophils % % Basophils % % Neutrophils # (1.3-7.7) k/uL Lymphocytes # (1.0-4.8) k/uL Monocytes # (0-1.0) k/uL Eosinophils # (0-0.7) k/uL Basophils # (0-0.2) k/uL PT (10.0-12.5) sec INR (<1.2) APTT (22.0-30.0) sec D-Dimer (<0.60) mg/L FEU Sodium 136 L (137-145) mmol/L Potassium 4.5 (3.5-5.1) mmol/L Chloride 101 (98-107) mmol/L Carbon Dioxide 27 (22-30) mmol/L Anion Gap 8 mmol/L BUN 8 (7-17) mg/dL Creatinine 0.49 L (0.52-1.04) mg/dL Est GFR (CKD-EPI)AfAm >90 (>60 ml/min/1.73 sqM) Est GFR (CKD-EPI)NonAf >90 (>60 ml/min/1.73 sqM) Glucose 230 H (74-99) mg/dL Calcium 9.5 (8.4-10.2) mg/dL Magnesium 1.8 (1.6-2.3) mg/dL Total Bilirubin 0.4 (0.2-1.3) mg/dL AST 41 H (14-36) U/L ALT 53 H (4-34) U/L Alkaline Phosphatase 209 H (38-126) U/L Troponin I <0.012 (0.000-0.034) ng/mL Total Protein 8.1 (6.3-8.2) g/dL Albumin 4.2 (3.5-5.0) g/dL Influenza Type A (PCR) (Not Detectd) Influenza Type B (PCR) (Not Detectd) RSV (PCR) (Not Detectd) SARS-CoV-2 (PCR) (Not Detectd) Disposition Clinical Impression: Atypical chest pain, Chest pain Disposition: ADMITTED IP TO THIS [facility] Condition: Good Is patient prescribed a controlled substance at d/c from ED?: No Referrals: Luis Lebron Jr, [Primary Care Provider] - 1-2 days Time of Disposition: 21:04
[2023-10-11 19:16] LABS: Basophils % (A) 1 %; Eosinophils # (A) 0.4 k/uL (0-0.7); Eosinophils % (A) 6 %; HCT 41.8 % (34.0-46.0); HGB 13.9 gm/dL (11.4-16.0); Lymphocytes # (A) 1.5 k/uL (1.0-4.8); Lymphocytes % (A) 21 %; MCH 30.5 pg (25.0-35.0); MCHC 33.2 g/dL (31.0-37.0); MCV 91.8 fL (80.0-100.0); Mean Platelet Volume 8.6; Monocytes # (A) 0.4 k/uL (0-1.0); Monocytes % (A) 6 %; Neutrophils # (A) 4.6 k/uL (1.3-7.7); Neutrophils % (A) 66 %; Platelet Count 389 k/uL (150-450); RBC 4.55 m/uL (3.80-5.40); RDW 12.5 % (11.5-15.5)
[2023-10-11 19:29] LABS: ALT 53 U/L (4-34); AST 41 U/L (14-36); African American GFR (CKD) >90 (>60 ml/min/1.73 sqM); Albumin 4.2 g/dL (3.5-5.0); Alkaline Phosphatase 209 U/L (38-126); Anion Gap 8 mmol/L; Blood Urea Nitrogen 8 mg/dL (7-17); Calcium 9.5 mg/dL (8.4-10.2); Carbon Dioxide 27 mmol/L (22-30); Chloride 101 mmol/L (98-107); Glucose 230 mg/dL (74-99); Magnesium 1.8 mg/dL (1.6-2.3); Non-African American GFR(CKD) >90 (>60 ml/min/1.73 sqM); Potassium 4.5 mmol/L (3.5-5.1); Sodium 136 mmol/L (137-145); Total Bilirubin 0.4 mg/dL (0.2-1.3); Total Protein 8.1 g/dL (6.3-8.2)
[2023-10-11 19:42] LABS: INR 0.9 (<1.2); Partial Thromboplastin Time 24.9 sec (22.0-30.0); Prothrombin Time 9.9 sec (10.0-12.5)
--- NOTE | 2023-10-11 20:40 | CT ---
EXAMINATION TYPE: CT angio chest CT DLP: 423.4 mGycm, Automated exposure control for dose reduction was used. DATE OF EXAM: 10/11/2023 8:18 PM COMPARISON: 09/01/2022 CLINICAL INDICATION:Female, 43 years old with history of CP/pos dimer; elevate d d dimer TECHNIQUE/CONTRAST: CTA scan of the thorax is performed with IV Contrast, patient injected with 100 mL of Isovue 370, MIP images are created and reviewed these are created on a separate workstation.. FINDINGS: Pulmonary Artery: There is no evidence for a filling defect within the pulmonary vasculature to sugge st acute pulmonary embolism. The pulmonary artery is of normal size. Lungs/Pleura: No evidence of focal consolidation, pleural effusion or pneumothorax. Airway: Large airways are patent. Heart: Heart is within normal limits for size. Vasculature: No evidence of aortic aneurysm. Mediastinum: Lymphadenopathy throughout the mediastinum r including subcarinal measuring up to 21 mm in short axis, bilateral perihilar prominent lymph nodes. Musculoskeletal: No acute osseous abnormalities Soft Tissues: Unremarkable. Lower neck: No significant findings. Upper Abdomen: Prominent gastrohepatic ligament lymph node measuring up to 10 mm in short axis. IMPRE SSION: 1. No evidence of pulmonary embolism. 2. Mediastinal lymphadenopathy again demonstrated compared to 09/01/2022 correlate for with medical h istory, correlate for sarcoidosis Follow up recommendations for incidental pulmonary nodules, if there are any, are per [employer] or [employer].
[2023-10-11 20:47] VITALS: RESP 16
[2023-10-11] MEDS ORDERED: ASPIRIN 325 MG TAB PO STA (21:06)
[2023-10-11] MEDS ORDERED: NALOXONE 0.4 MG/ML 1 ML VIAL IV PRN (21:06)
[2023-10-11] MEDS ORDERED: MORPHINE SULFATE 4 MG/ML SYRINGE IV PRN (21:06)
[2023-10-11] MEDS ORDERED: ACETAMINOPHEN TAB 325 MG TAB PO PRN (21:06)
[2023-10-12 06:10] VITALS: TEMP 97.8
[2023-10-12] MEDS ORDERED: lisinopriL 5 MG TAB PO SCH (09:00)
[2023-10-12] MEDS ORDERED: predniSONE 20 MG TAB PO SCH (09:00)
--- NOTE | 2023-10-12 09:47 | US ---
EXAMINATION TYPE: US venous doppler duplex LE LT DATE OF EXAM: 10/12/2023 8:42 AM COMPARISON: NONE CLINICAL INDICATION: Female, 43 years old with history of DVT history, calf pain; Left calf pain SIDE PERFORMED: left TECHNIQUE: The lower extremity deep venous system is examined utilizing real time linear array sonog tamy with graded compression, doppler sonography and color-flow sonography. VESSELS IMAGED: Common Femoral Vein Deep Femoral Vein Greater Saphenous Vein * Femoral Vein Popliteal Vein Small Saphenous Vein * Proximal Calf Veins Posterior tibial veins (* superficial vessels) Left Leg: No evidence of DVT IMPRESSION: No evidence for DVT within the left lower extremity imaged from the groin to the upper calf.
[2023-10-12 10:20] VITALS: BP 121/80; PULSE 88
--- NOTE | 2023-10-12 11:01 | P.CRDCN ---
History of Present Illness Consult date: 10/12/23 Consult reason: chest pain History of present illness: History of present illness: This is a 43-year-old female with no previous cardiac history, does not follow with a boss dyer. She has a past medical history of diabetes mellitus type 2, hypertension, history of DVT in 2021 took anticoagulation for 45 days. We have been asked to evaluate the patient for chest pain. Patient is seen today in the emergency center waiting for bed on the observation unit. Patient gives history of chest pain developed 2 days ago and noticed that her blood pressure was elevated 165/109. She states the chest pain was a quick jab lasting 30 seconds on and off and worsening becoming sharp yesterday. She did have some pain with movement. Pain was nonradiating. She does relate that she is not good about taking her blood pressure medications. Patient also states she feels like her left calf is bynum similar to when she had an acute DVT in 2021. She has a family history of father passing at age 44 from a pulmonary embolism. EKG sinus rhythm with no AV block Chest x-ray: No acute process CTA negative for pulmonary embolism. Mediastinal lymphadenopathy again demonstrated compared to 09/01/2022 correlate for sarcoidosis. Patient had bronchoscopy completed for this in October 2022. Ultrasound of the left lower extremity negative for DVT CBC normal. INR 0.9. D-dimer 1.49. Sodium 136, potassium 4.5, creatinine 0.49. Troponin negative x 3. AST 41, ALT 53, alkaline phosphatase 209. Influenza A, influenza B, RSV, COVID-19 not detected. Home cardiac medications: Lisinopril 5 mg daily Exercise stress test performed 03/02/2023 normal. Review Of Systems: At the time of my evaluation: Constitutional: No fever, no chills. No weakness, fatigue or lethargy. EENT: No headache. No dizziness. Lungs: No shortness of breath, cough, no sputum production. No wheezing. Cardiovascular: No chest pain, no lower extremity edema. No palpitations. No paroxysmal nocturnal dyspnea. No orthopnea. No lightheadedness or dizziness. No syncopal episodes. Abdominal: No abdominal pain. No nausea, vomiting. No diarrhea. No constipation. No bloody or tarry stools. Genitourinary: No dysuria.. No urinary retention. Musculoskeletal: No myalgias. No muscle weakness, no frequent falls. No back pain. No neck pain. Integumentary: No wounds. No rash. No unusual bruising. Neurologic: No aphasia. No facial droop. No change in mentation. No head injury. No headache. Physical examination: Gen: This is a 43-year-old female. She appears to be in no acute distress. VS: reviewed HEENT: Head is atraumatic, normocephalic. Pupils equal, round. Sclerae is anicteric. NECK: Supple. No JVD. . LUNGS: Clear to auscultation. No wheezes or rhonchi. No intercostal retractions. HEART: Regular rate and rhythm. No murmur. ABDOMEN: Soft No tenderness. EXTREMITIES: No pedal edema. No calf tenderness. NEUROLOGICAL: Patient is awake, alert and oriented x3. Assessment: Atypical chest pain, acute coronary syndrome ruled out Abnormal CAT scan finding of possible sarcoidosis Elevated liver function test Plan: Obtain stress echocardiogram Obtain 2-D echocardiogram and Doppler study to assess cardiac structure and function If testing is unremarkable, patient is cleared for discharge home by cardiology Thank you kindly for this consultation. Nurse practitioner note has been reviewed, I agree with documented findings and plan of care. Patient was seen and examined. Past Medical History Past Medical History: Diabetes Mellitus, Deep Vein Thrombosis (DVT), Hypertension Additional Past Medical History / Comment(s): MIGRAINES. BACK/DISC ISSUES History of Any Multi-Drug Resistant Organisms: None Reported Past Surgical History: Back Surgery, Section Additional Past Surgical History / Comment(s): NASAL SURG. Past Anesthesia/Blood Transfusion Reactions: No Reported Reaction Additional Past Anesthesia/Blood Transfusion Reaction / Comment(s): ? apnea coming out of anesthesia when intubated Past Psychological History: No Psychological Hx Reported Smoking Status: Former smoker Past Alcohol Use History: Rare Past Drug Use History: None Reported - Past Family History Father Family Medical History: Pulmonary Embolus Medications and Allergies Home Medications Medication Instructions Recorded Confirmed Type lisinopriL [Zestril] 5 mg PO DAILY #30 tab 07/29/22 10/11/23 Rx Insulin Glargine,Hum.rec.anlog 46 units SQ W/SUPPER 10/11/23 10/11/23 History [María Elena Baer] tiZANidine [Zanaflex] 8 mg PO HS 10/11/23 10/11/23 History Allergies Allergy/AdvReac Type Severity Reaction Status Date / Time venom-honey bee Allergy Severe Anaphylaxis Verified 10/11/23 17:21 [bee venom (honey bee)] sulfisoxazole acetyl AdvReac Severe Nausea & Verified 10/11/23 17:21 [From Pediazole] Vomiting & Diarrhea clindamycin AdvReac Nausea & Verified 10/11/23 17:21 Vomiting & Diarrhea corn AdvReac Rash/Hives Verified 10/11/23 17:21 egg AdvReac Rash/Hives Verified 10/11/23 17:21 erythromycin ethylsuccinate AdvReac Nausea & Verified 10/11/23 17:21 [From Pediazole] Vomiting & Diarrhea Milk Containing Products AdvReac Rash/Hives Verified 10/11/23 17:21 (Dairy) [Dairy] wheat AdvReac Rash/Hives Verified 10/11/23 17:21 Physical Exam Vitals: Vital Signs Temp Pulse Pulse Resp BP Pulse Ox 10/12/23 05:50 97.8 F 89 16 122/70 97 10/12/23 00:38 72 16 136/88 97 10/11/23 20:41 89 16 158/92 99 10/11/23 19:16 65 10/11/23 19:07 96 18 150/102 98 10/11/23 17:17 98.3 F 106 H 20 159/93 95 Intake and Output 10/11/23 10/12/23 10/12/23 22:59 06:59 14:59 Other: Weight 99.79 kg Results 10/11/23 19:05 10/11/23 19:05 Cardiac Enzymes 10/11/23 10/11/23 10/11/23 Range/Units 19:05 19:05 22:44 AST 41 H (14-36) U/L Troponin I <0.012 <0.012 (0.000-0.034) ng/mL 10/12/23 Range/Units 01:09 AST (14-36) U/L Troponin I <0.012 (0.000-0.034) ng/mL Coagulation 10/11/23 Range/Units 19:05 PT 9.9 L (10.0-12.5) sec APTT 24.9 (22.0-30.0) sec CBC 10/11/23 Range/Units 19:05 WBC 7.0 (3.8-10.6) k/uL RBC 4.55 (3.80-5.40) m/uL Hgb 13.9 (11.4-16.0) gm/dL Hct 41.8 (34.0-46.0) % Plt Count 389 (150-450) k/uL Comprehensive Metabolic Panel 10/11/23 Range/Units 19:05 Sodium 136 L (137-145) mmol/L Potassium 4.5 (3.5-5.1) mmol/L Chloride 101 (98-107) mmol/L Carbon Dioxide 27 (22-30) mmol/L BUN 8 (7-17) mg/dL Creatinine 0.49 L (0.52-1.04) mg/dL Glucose 230 H (74-99) mg/dL Calcium 9.5 (8.4-10.2) mg/dL AST 41 H (14-36) U/L ALT 53 H (4-34) U/L Alkaline Phosphatase 209 H (38-126) U/L Total Protein 8.1 (6.3-8.2) g/dL Albumin 4.2 (3.5-5.0) g/dL Current Medications Generic Name Dose Route Start Last Admin Trade Name Freq PRN Reason Stop Dose Admin Acetaminophen 650 mg 10/11/23 21:06 Acetaminophen Tab 325 Mg Tab PO Q6HR PRN Mild Pain or Fever > 100.5 Insulin Detemir 46 unit 10/12/23 17:30 Insulin Detemir (Levemir) 100 Unit/Ml Syr SQ W/SUPPER [facility] Lisinopril 5 mg 10/12/23 09:00 Lisinopril 5 Mg Tab PO DAILY [facility] Morphine Sulfate 4 mg 10/11/23 21:06 Morphine Sulfate 4 Mg/Ml Syringe IV Q4HR PRN Severe Pain (Scale 7 to 10) Naloxone HCl 0.2 mg 10/11/23 21:06 Naloxone 0.4 Mg/Ml 1 Ml Vial IV Q2M PRN Opioid Reversal Prednisone 40 mg 10/12/23 09:00 Prednisone 20 Mg Tab PO DAILY [facility] Tizanidine HCl 8 mg 10/12/23 21:00 Tizanidine 4 Mg Tab PO HS JD Intake and Output 10/11/23 10/12/23 10/12/23 22:59 06:59 14:59 Other: Weight 99.79 kg 10/11/23 19:05 10/11/23 19:05
[2023-10-12 11:23] LABS: Chol/HDL Ratio 2.73 Ratio; LDL Cholesterol,Calculated 82.5 mg/dL (0.0-131.0); VLDL Calculation 15.78 mg/dL (5.00-40.00)
--- NOTE | 2023-10-12 11:51 | CA ---
Stress Echo Report Linette Rai Age: 43 Gender: F : 1980 Exam Date: 10/12/2023 10:53 Exam Location: [place] Echo Ht (in): 66 Wt (lb): 220 Ordering Physician: Julisa Matias Referring Physician: [id number] Manager Trading: Harika Womack [facility] Technologist Procedure CPT: Indication: cp if neg for DVT ICD-9 Codes: Rhythm: Patient History: CHEST PAIN, PALPITATIONS, ANGINA, HTN, DIABETIC, FAMILY HX OF HEART DISEASE, FORMER SMOKER Cardiac Medications: Medications in past 24 hours: Contrast: Stress Results Protocol: Luis Miguel Total dose(mL): Exercise Duration (min:sec): 8:[address] Depression (mm): Angina Score: Tidwell Score: METS: 10.3 Resting HR: 106 Resting BP: 108 / 79 Peak HR: 174 Peak BP: 175 / 79 Max Predicted HR: 179 97 % Max Predicted HR Target HR: 152 Double Product: [id number] Stress Summary: BP Response: Reason for Termination: MAX EXERTION/TARGET HR Cardiac Symptoms: DIFFICULTY IN BREATHING ECG Analysis Resting ECG: Stress ECG: Arrhythmia: Echo Analysis Resting Echo: Peak Echo Analysis: MEASUREMENTS (Male/Female) Normal Values CONCLUSIONS Good exercise tolerance Normal electrocardiogram and echocardiogram in response to exercise Dr. Anish Medrano MD (Electronically Signed) Final Date: 12 October 2023 11:51
--- NOTE | 2023-10-12 12:32 | P.HPIM ---
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 Reports nonradiating midsternal sharp pain occurred Tuesday at school while standing, without nausea vomiting or diarrhea, no diaphoresis, no lightheadedness dizziness or focal deficits and resolved in seconds. Similar presentation recurred during the evening while standing at home and again early in the morning around 230 lasting approximately 30 seconds with minimal tenderness at the site and mild numbness in left hand fingertips, spontaneously resolved. Reports she has been hypertensive as high in the 160s and has not been taking her prescribed blood pressure medications, but states her blood sugars have been controlled .denies chest pain, palpitations or shortness of breath. Maintaining O2 sats in the high 90s on room air. EKG reported sinus rhythm, troponins negative x 3, afebrile, normal WBC. Hematology panel unremarkable. D-dimer elevated,CTA reported no evidence of pulmonary embolism, mediastinal lymphadenopathy again demonstrated compared to 09/01/2022, correlate for sarcoidosis (bronchoscopy in October [address] Macdonald).electrolytes within normal limits ,renal function stable .T. bili within normal limits; AST 41, ALT 53, alk phos 209. -systolic blood pressures in the 150s on admission, currently into the 130s evaluated by cardiology. Chest x-ray reported no acute cardiopulmonary disease/process. Tested negative for influenza type A, type B, RSV, COVID. lipid panel pending. Review of Systems ROS Statement: Those systems with pertinent positive or pertinent negative responses have been documented in the HPI. ROS Other: All systems not noted in ROS Statement are negative. Past Medical History Past Medical History: Diabetes Mellitus, Deep Vein Thrombosis (DVT), Hypertension Additional Past Medical History / Comment(s): MIGRAINES. BACK/DISC ISSUES History of Any Multi-Drug Resistant Organisms: None Reported Past Surgical History: Back Surgery, Section Additional Past Surgical History / Comment(s): NASAL SURG. Past Anesthesia/Blood Transfusion Reactions: No Reported Reaction Additional Past Anesthesia/Blood Transfusion Reaction / Comment(s): ? apnea coming out of anesthesia when intubated Past Psychological History: No Psychological Hx Reported Smoking Status: Former smoker Past Alcohol Use History: Rare Past Drug Use History: None Reported - Past Family History Father Family Medical History: Pulmonary Embolus Medications and Allergies Home Medications Medication Instructions Recorded Confirmed Type lisinopriL [Zestril] 5 mg PO DAILY #30 tab 07/29/22 10/11/23 Rx Insulin Glargine,Hum.rec.anlog 46 units SQ W/SUPPER 10/11/23 10/11/23 History [Toujeo Max Solostar] tiZANidine [Zanaflex] 8 mg PO HS 10/11/23 10/11/23 History Allergies Allergy/AdvReac Type Severity Reaction Status Date / Time venom-honey bee Allergy Severe Anaphylaxis Verified 10/11/23 17:21 [bee venom (honey bee)] sulfisoxazole acetyl AdvReac Severe Nausea & Verified 10/11/23 17:21 [From Pediazole] Vomiting & Diarrhea clindamycin AdvReac Nausea & Verified 10/11/23 17:21 Vomiting & Diarrhea corn AdvReac Rash/Hives Verified 10/11/23 17:21 egg AdvReac Rash/Hives Verified 10/11/23 17:21 erythromycin ethylsuccinate AdvReac Nausea & Verified 10/11/23 17:21 [From Pediazole] Vomiting & Diarrhea Milk Containing Products AdvReac Rash/Hives Verified 10/11/23 17:21 (Dairy) [Dairy] wheat AdvReac Rash/Hives Verified 10/11/23 17:21 Physical Exam Vitals: Vital Signs Temp Pulse Pulse Resp BP Pulse Ox 10/12/23 05:50 97.8 F 89 16 122/70 97 10/12/23 00:38 72 16 136/88 97 10/11/23 20:41 89 16 158/92 99 10/11/23 19:16 65 10/11/23 19:07 96 18 150/102 98 10/11/23 17:17 98.3 F 106 H 20 159/93 95 Intake and Output 10/11/23 10/12/23 10/12/23 22:59 06:59 14:59 Other: Weight 99.79 kg PHYSICAL EXAM: VITAL SIGNS: [As above] GENERAL: Sitting up on stretcher, no acute distress HEENT: Normocephalic, atraumatic, conjunctivae normal. eyes normal. NECK: Supple, no JVD. CARDIOVASCULAR: S1, S2 regular.. No murmur RESPIRATION: Unlabored, equal air entry, breath sounds diminished in the bases. No rhonchi or crackles. No bronchial breathing. ABDOMEN: Soft, nondistended, nontender . No guarding. no masses palpable. No rigidity, +BS. LEGS: No edema. no swelling, no calf tenderness, positive DP pulses PSYCHIATRY: Alert and oriented X3, mood and affect normal. NERVOUS SYSTEM: Cranial N 2-12 grossly normal. No focal deficits. Strength and sensation grossly intact.. Skin: Warm and dry, no rash Results CBC & Chem 7: 10/11/23 19:05 10/11/23 19:05 Labs: Abnormal Lab Results - Last 24 Hours (Table) 10/11/23 10/11/23 Range/Units 19:05 19:05 PT 9.9 L (10.0-12.5) sec D-Dimer 1.49 H (<0.60) mg/L FEU Sodium 136 L (137-145) mmol/L Creatinine 0.49 L (0.52-1.04) mg/dL Glucose 230 H (74-99) mg/dL AST 41 H (14-36) U/L ALT 53 H (4-34) U/L Alkaline Phosphatase 209 H (38-126) U/L Assessment and Plan Assessment: Atypical chest pain, troponins negative x 3, acute coronary syndrome ruled out. Cardiology following. CT reports findings of sarcoidosis, bronchoscopy with Dr. Gardner 11/11 . Patient reports history of. Elevated LFTs, further workup outpatient in clinic with PCP Plan: Continue on current medication regimen, monitoring and symptomatic treatment. Evaluated by cardiology and patient is scheduled for 2D echo/stress echocardiogram. Doppler of left lower extremity reported negative. Patient will be discharged home today in a stable condition with guarded prognosis pending completion of cardiac workup, final DC recommendations and clearance per cardiology. Discharge Medication List lisinopriL [Zestril] 5 mg PO DAILY #30 tab 07/29/22 [Rx] Insulin Glargine,Hum.rec.anlog [María Elena Kimostji] 46 units SQ W/SUPPER 10/11/23 [History] tiZANidine [Zanaflex] 8 mg PO HS 10/11/23 [History] The impression and plan of care has been dictated as directed. : I performed a history and examination of this patient, discussed the same with the dictator. I agree with the dictator's note ,documented as a scribe. Any additional findings or plans will be noted.
--- NOTE | 2023-10-12 15:15 | P.DS ---
Providers Date of admission: 10/11/23 21:09 Expected date of discharge: 10/12/23 Attending physician: Luis Lebron Consults: 10/11/23 21:06 Consult Physician Routine Consulting Provider: Bhavin Nunez Consult Reason/Comments: CP rule out Do you want consulting provider notified?: Yes Primary care physician: Luis Lebron Patient Condition at Discharge: Good Plan - Discharge Summary New Discharge Prescriptions: New predniSONE 10 mg PO DIRECTED #55 tab No Action tiZANidine [Zanaflex] 8 mg PO HS lisinopriL [Zestril] 5 mg PO DAILY #30 tab Insulin Glargine,Hum.rec.anlog [Toujeo Max Solostar] 46 units SQ W/SUPPER Discharge Medication List lisinopriL [Zestril] 5 mg PO DAILY #30 tab 07/29/22 [Rx] Insulin Glargine,Hum.rec.anlog [Toujeo Max Solostar] 46 units SQ W/SUPPER 10/11/23 [History] tiZANidine [Zanaflex] 8 mg PO HS 10/11/23 [History] predniSONE 10 mg PO DIRECTED #55 tab 10/12/23 [Rx] Follow up Appointment(s)/Referral(s): Genia Gardner MD [STAFF PHYSICIAN] - 1 Week Luis Lebron Jr, DO [Primary Care Provider] - 3 Days Patient Instructions/Handouts: Chest Pain (DC), Sarcoidosis (DC)
[2023-10-12] MEDS ORDERED: INSULIN DETEMIR (LEVEMIR) 100 UNIT/ML SYR SQ SCH (17:30)
[2023-10-12] MEDS ORDERED: tiZANidine 4 MG TAB PO SCH (21:00)
--- NOTE | 2023-10-13 10:21 | CA ---
Transthoracic Echo Report Name: Linette Rai Age: 43 Gender: F : 1980 Exam Date: 10/12/2023 11:15 Exam Location: [place] [facility] Ht (in): 67 Wt (lb): 220 Ordering Physician: Julisa Matias Attending/Referring Phys: [id number], Florencio Pass Worker Harika Womack [facility] Procedure CPT: Indications: LVF Cardiac Hx: Technical Quality: Fair Contrast 1: Total Dose (mL): Contrast 2: Total Dose (mL): MEASUREMENTS (Male / Female) Normal Values 2D ECHO LV Diastolic Diameter PLAX 3.8 cm 4.2 - 5.9 / 3.9 - 5.3 cm LV Systolic Diameter PLAX 2.6 cm IVS Diastolic Thickness 1.2 cm 0.6 - 1.0 / 0.6 - 0.9 cm LVPW Diastolic Thickness 1.2 cm 0.6 - 1.0 / 0.6 - 0.9 cm LV Relative Wall Thickness 0.6 LVOT Diameter 2.0 cm Ascending Aorta Diameter 3.3 cm M-MODE Aortic Root Diameter MM 2.8 cm LA Systolic Diameter MM 3.2 cm LA Ao Ratio MM 1.2 AV Cusp Separation MM 2.3 cm DOPPLER AV Peak Velocity 125.0 cm/s AV Peak Gradient 6.2 mmHg AV Mean Velocity 87.6 cm/s AV Mean Gradient 3.3 mmHg AV Velocity Time Integral 20.3 cm LVOT Peak Velocity 112.5 cm/s LVOT Peak Gradient 5.1 mmHg LVOT Velocity Time Integral 17.5 cm LVOT Stroke Volume 57.5 cm??? LVOT Stroke Volume Index 27.3 ml/m??? LVOT Cardiac Index 2655.7 cm???/min???m??? AV Area Cont Eq vti 2.8 cm??? AV Area Cont Eq pk 3.0 cm??? Mitral E Point Velocity 78.3 cm/s Mitral A Point Velocity 84.8 cm/s Mitral E to A Ratio 0.9 MV Deceleration Time 182.7 ms LV E' Lateral Velocity 11.1 cm/s Mitral E to LV E' Lateral Ratio 7.1 LV E' Septal Velocity 9.7 cm/s Mitral E to LV E' Septal Ratio 8.1 Right Atrial Pressure 3.0 mmHg FINDINGS Left Ventricle Mildly increased left ventricular wall thickness. Hyperdynamic left ventricle with EF around 70% Right Ventricle Normal right ventricular size. Right Atrium Normal right atrial size. Left Atrium Normal left atrial size. Mitral Valve Structurally normal mitral valve. No mitral regurgitation. Aortic Valve Trileaflet aortic valve. No aortic valve stenosis or regurgitation. Tricuspid Valve Structurally normal tricuspid valve. No tricuspid regurgitation. Pulmonic Valve Pulmonic valve not well visualized. Pericardium No pericardial effusion. Aorta Normal size aortic root and proximal ascending aorta. CONCLUSIONS Hyperdynamic left ventricle with an ejection fraction about 70% with almost cavity obliteration On apical 4 chamber view, I will suggest checking for mid-cavity gradient No significant valvular abnormalities noted No pericardial effusion seen Previewed by: Dr. Anish Medrano MD (Electronically Signed) Final Date: 13 October 2023 10:20
== END 2023-10-12 15:15 | disposition home or self-care (01) ==
LOC: EC 17:14 → 6NMEDSUR 21:09
PROVIDERS: ADMIT Family Medicine; ATTEND Family Medicine
DX: R07.89 Other chest pain (principal); I10 Essential (primary) hypertension; E11.9 Type 2 diabetes mellitus without complications; R94.8 Abnormal results of function studies of other organs and systems; R79.89 Other specified abnormal findings of blood chemistry; D86.9 Sarcoidosis, unspecified; E66.9 Obesity, unspecified; Z68.35 Body mass index [BMI] 35.0-35.9, adult; Z20.822 Contact with and (suspected) exposure to COVID-19; Z86.718 Personal history of other venous thrombosis and embolism; Z87.891 Personal history of nicotine dependence; Z79.4 Long term (current) use of insulin; Z79.899 Other long term (current) drug therapy; Z88.1 Allergy status to other antibiotic agents
CPT/HCPCS: 99285; 36415; 93005; 93306; 93351; 85379; 80061; 80053; 85652; 83735; 84484 ×2; 85025; 85610; 85730; 86140; 87636; 71046; 93971; 71275; G0378 ×2; Q9967

== ENCOUNTER → 2024-06-27 | Outpatient (CLI) | payer OTHER, MEDICAID ==
[2024-06-28 02:38] LABS: ALT 26 U/L (8-44); AST 20 U/L (13-35); Albumin/Globulin Ratio 1.25 Ratio (1.60-3.17); Alkaline Phosphatase 119 U/L (41-126); BUN/Creat Ratio 14.33 Ratio (12.00-20.00); Blood Urea Nitrogen 8.6 mg/dL (9.0-27.0); Calcium 8.9 mg/dL (8.7-10.3); Carbon Dioxide 25.5 mmol/L (21.6-31.8); Chloride 106 mmol/L (96-109); Globulin 3.2 g/dL (1.6-3.3); Glucose 169 mg/dL (70-110); Potassium 4.2 mmol/L (3.5-5.5); Sodium 141 mmol/L (135-145); Total Bilirubin 0.3 mg/dL (0.3-1.2); Total Protein 7.2 g/dL (6.2-8.2)
== END | disposition home or self-care (01) ==
LOC: LABWHC1 15:02
PROVIDERS: ATTEND Nurse Practitioner
CPT/HCPCS: 36415; 80053; 82043; 82570

== ENCOUNTER → 2025-04-18 | Outpatient (CLI) | payer MEDICAID ==
[2025-04-18 15:18] LABS: Basophils # (A) 0.03 X 10*3/uL (0.00-0.10); Basophils % (A) 0.4 %; Eosinophils # (A) 0.25 X 10*3/uL (0.04-0.35); Eosinophils % (A) 3.7 %; HCT 40.4 % (37.2-46.3); HGB 13.4 g/dL (12.0-15.0); Immature Grans, Automated 0.30 %; Lymphocytes # (A) 1.45 X 10*3/uL (0.90-5.00); Lymphocytes % (A) 21.2 %; MCH 29.9 pg (27.0-32.0); MCHC 33.2 g/dL (32.0-37.0); MCV 90.2 FL (80.0-97.0); Monocytes # (A) 0.68 X 10*3/uL (0.20-1.00); Monocytes % (A) 9.9 %; NRBC Per 100 WBC 0 X 10*3/uL (0.00-0.01); Neutrophils # (A) 4.41 X 10*3/uL (1.80-7.70); Neutrophils % (A) 64.5 %; Platelet Count 370 X 10*3/uL (140-440); RBC 4.48 X 10*6/uL (4.10-5.20); RDW 12.9 % (11.5-14.5); WBC 6.84 X 10*3/uL (4.50-10.00)
[2025-04-18 15:54] LABS: ALT 17 U/L (8-44); AST 22 U/L (13-35); Albumin 4.1 g/dL (3.8-4.9); Albumin/Globulin Ratio 1.11 Ratio (1.60-3.17); Alkaline Phosphatase 100 U/L (41-126); Anion Gap 10.90 mmol/L (4.00-12.00); BUN/Creat Ratio 8.00 Ratio (12.00-20.00); Blood Urea Nitrogen 4.8 mg/dL (9.0-27.0); Calcium 9.2 mg/dL (8.7-10.3); Carbon Dioxide 25.1 mmol/L (21.6-31.8); Chloride 102 mmol/L (96-109); Cholesterol 146.00 mg/dL (0.00-200.00); Globulin 3.7 g/dL (1.6-3.3); Glucose 106 mg/dL (70-110); HDL Cholesterol 50.40 mg/dL (40.00-60.00); LDL Cholesterol,Calculated 80.7 mg/dL (0.0-131.0); Potassium 4.4 mmol/L (3.5-5.5); Sodium 138 mmol/L (135-145); Total Protein 7.8 g/dL (6.2-8.2); Triglycerides 74.60 mg/dL (0.00-149.00); VLDL Calculation 14.92 mg/dL (5.00-40.00)
== END | disposition home or self-care (01) ==
LOC: LABWHC1 11:50
DX: Z13.29 Encounter for screening for other suspected endocrine disorder (principal); E11.59 Type 2 diabetes mellitus with other circulatory complications; E78.00 Pure hypercholesterolemia, unspecified; E55.9 Vitamin D deficiency, unspecified; R07.9 Chest pain, unspecified
CPT/HCPCS: 36415; 80053; 80061; 82306; 84443; 84484; 85025